=== PATIENT | male | born 1985 | race Two or more races ===

== ENCOUNTER 2021-01-05 10:14 | Outpatient (REF) | payer OTHER, SELFPAY ==
[2021-01-05 11:31] LABS: Hematocrit 48.2 % (42.0-52.0); Hemoglobin 16.3 g/dl (14.0-18.0); Mean Corpuscular HGB Conc 33.8 g/dl (31.0-36.0); Mean Corpuscular Hemoglobin 30.2 pg (27.0-33.0); Mean Corpuscular Volume 89.4 fL (80.0-98.0); Mean Platelet Volume 11.7 fL (9.4-12.4); Platelet Count 210 X10*3/uL (160-400); Red Blood Count 5.39 X10*6/uL (4.60-5.80); Red Cell Distribution Width 12.6 % (11.0-16.0); White Blood Count 5.9 X10*3/uL (4.8-10.8)
[2021-01-05 11:31] LABS: Appearance Urine CLEAR; Color Urine YELLOW; Glucose Urine UA NEG (NEG); Leukocyte Esterase Urine NEG (NEG); Nitrite Urine NEG (NEG); Urine Blood NEG (NEG); Urine Ketones NEG (NEG); Urine Protein 1+ MG/DL (NEG-TRACE)
[2021-01-05 11:50] LABS: RBC Urine 0 /HPF (0); WBC Urine 0 /HPF (0-4)
[2021-01-05 12:13] LABS: Alanine Aminotransferase 34 U/L (0-40); Albumin Level 4.7 g/dL (3.5-5.0); Alkaline Phosphatase 83 U/L (39-117); Anion Gap 14 (12-20); Aspartate Amino Transferase 20 U/L (5-37); Bilirubin Direct 0.4 mg/dL (0.0-0.5); Bilirubin Total 1.3 mg/dL (0.0-1.0); Blood Urea Nitrogen 13 mg/dL (9-16); Calcium 9.7 mg/dL (8.4-10.2); Carbon Dioxide 27 mmol/L (22-29); Chloride 105 mmol/L (96-108); Cholesterol 179 mg/dL; Estimated Glomerular Filt Rate > 60; Glucose Random 95 mg/dL (60-115); HDL Cholesterol 42 mg/dL; LDL Cholesterol Calculated 116 mg/dl; Potassium 4.6 mmol/L (3.3-5.1); Sodium 141 mmol/L (135-145); Total Protein 7.5 g/dL (6.5-8.0); Triglycerides 105 mg/dL
== END 2021-01-05 10:15 | disposition home or self-care (01) ==
LOC: HO.LAB 10:14
PROVIDERS: PCP Internal Medicine; Visit Provider Internal Medicine
DX: R21 Rash and other nonspecific skin eruption (principal)
CPT/HCPCS: 36415; 80048; 80061; 80076; 81001; 85027

== ENCOUNTER 2021-06-16 02:45 | Emergency (ER) | payer OTHER, SELFPAY ==
[2021-06-16 02:51] VITALS: BP 155/77; PULSE 101; RESP 20; TEMP 37.2; O2SAT 99; BMI 32.6
--- NOTE | 2021-06-16 03:08 | ED.URI ---
HPI - URI/Sore Throat General Chief Complaint: Upper Respiratory Symptoms Stated Complaint: SoB Time Seen by Provider: 06/16/21 03:08 History of Present Illness HPI Narrative: Patient is a 35-year-old male presented with coughing upper respiratory symptoms. Tested positive for COVID 2 days ago. Continue calf symptoms of shortness of breath. Sent in for further evaluation he is vaccinated with Moderna x2. No chest pain or diaphoresis no significant past medical history. Patient is on home Related Data Previous Rx's Medication Instructions Recorded ketoconazole 2 % topical cream 1 appl TOPICAL DAILY #15 g 06/07/21 Allergies Allergy/AdvReac Type Severity Reaction Status Date / Time No Known Allergies Allergy Verified 06/16/21 02:55 Review of Systems Review of Systems: Positive cough and upper respiratory symptoms positive generalized malaise Yes all other systems are reviewed and are negative FOR[facility]LY [facility], [facility] Past Medical History Attestation statement: The following information was validated with the patient. Surgical History History of dental surgery Family History Family History Mother No problems noted. Father Heart attack Diabetes Brother Mental health disorder Substance use disorder Social History Social History Housing: Apartment Alcohol intake: never Patient Tobacco Use Status: Never used Tobacco e-Cigarette/Vaping Use: Never Used Second Hand Smoke Exposure: No Advance Directives: No Advance Directives Information Provided: Yes service: No Current occupational status: employed Cognitive needs: No Hearing needs: No Vision needs: Yes (Glasses) Physical Exam Vital Signs: Vital Signs: Last Vital Signs Temp 98.9 F 06/16/21 02:51 Pulse 101 H 06/16/21 02:51 Resp 20 06/16/21 02:51 BP 155/77 H 06/16/21 02:51 Pulse Ox 99 06/16/21 02:51 BMI result Body Mass Index 32.6 Appearance: Alert. Oriented X3. No acute distress. Eyes: Pupils equal, round and reactive to light. ENT: Pharynx normal. Neck: Normal inspection. Neck supple. No lymph nodes noted. No crepitus CVS: Normal heart rate and rhythm. Pulses normal. Normal S1 and S2 Respiratory: No respiratory distress. Breath sounds normal. No Wheezing. No rales Abdomen: Soft and nontender. No rigidity. No distention. good BS x4 Skin: Skin warm and dry. Normal skin color. Normal skin turgor. Extremities: No lower extremity edema. Neurovascular intact to all extremities. No Lacerations. No Rash Neuro: Oriented X 3. No motor deficit. No sensory deficit. Moving all extermities. No slurred speech MDM - URI/Sore Throat MDM Narrative Medical decision making narrative: O2 sat is 99% on room air no distress. Will discharge patient home. Tested positive for COVID. Well-appearing no distress in stable condition Medical Records Attestation: I reviewed the patient's medical records. Lab Data Attestation: I reviewed the patient's lab results. Discharge Plan Discharge Clinical Impression: COVID-19 Patient Disposition: Home, Self-Care Instructions: COVID-19 (Coronavirus Disease 2019) (ED) Prescriptions: No Action ketoconazole 2 % cream 1 appl topical DAILY Qty: 15 0RF Referrals: Physician,Unknown J [Primary Care Provider] -
== END 2021-06-16 03:23 | disposition home or self-care (01) ==
PROVIDERS: Emergency Provider Emergency Medicine Emergency Medical Services
DX: U07.1 COVID-19 (principal); R06.02 Shortness of breath; R05.9 Cough, unspecified
CPT/HCPCS: 99282; 99283

== ENCOUNTER 2022-04-17 09:48 | Outpatient (REF) | payer OTHER, SELFPAY ==
--- NOTE | ~2022-04-17 | FL_ITS ---
EXAMINATION: BARIUM SWALLOW AND UPPER GI CLINICAL INFORMATION: Dysphagia COMPARISON: None TECHNIQUE: Upper GI and barium swallow performed using thin and thick barium and effervescent granules. Barium tablet was also administered. Fluoroscopy time 1.1 minutes. 51 images. DAP 9.7 prater per centimeter squared. Total dose of 45 mgy. FINDINGS: The swallowing mechanism is normal. No aspiration or penetration. There is mucosal irregularity and abnormal Contractions of the proximal thoracic esophagus suggestive of esophagitis. There is temporary stasis of the barium tablet in this region as well. This area does not completely distended and is difficult to exclude mild narrowing of the esophagus/stricture. No mass. Normal esophageal motility. There is a small sliding-type hiatal hernia. The esophagus is otherwise normal. No reflux is seen. The stomach and duodenum are normal. No fold thickening, mass, ulcer or stricture. FL/FL upper GI w air w Ba Swallow IMPRESSION: Esophagitis of the proximal thoracic esophagus. There is temporary stasis of the barium tablet in this region. The esophagus does not fully distend in this region and it is difficult to exclude mild narrowing/stricture. Small sliding-type hiatal hernia.
== END 2022-04-17 09:49 | disposition home or self-care (01) ==
LOC: HO.XRAY 09:48
PROVIDERS: PCP Internal Medicine; Visit Provider Internal Medicine
DX: R13.10 Dysphagia, unspecified (principal)
CPT/HCPCS: 74246

== ENCOUNTER → 2022-06-24 15:53 | Outpatient (BNVA) | payer OTHER, SELFPAY | PROVIDERS: PCP Internal Medicine; Visit Provider Nurse Practitioner Family | DX: Z13.89 Encounter for screening for other disorder (principal) ==

== ENCOUNTER 2022-07-19 10:03 | Outpatient (REF) | payer OTHER, SELFPAY ==
[2022-07-19 10:48] LABS: Hematocrit 49.5 % (42.0-52.0); Hemoglobin 16.8 g/dl (14.0-18.0); Mean Corpuscular HGB Conc 33.9 g/dl (31.0-36.0); Mean Corpuscular Hemoglobin 30.1 pg (27.0-33.0); Mean Corpuscular Volume 88.6 fL (80.0-98.0); Mean Platelet Volume 10.9 fL (9.4-12.4); Platelet Count 195 X10*3/uL (160-400); Red Blood Count 5.59 X10*6/uL (4.60-5.80); Red Cell Distribution Width 12.5 % (11.0-16.0); White Blood Count 6.9 X10*3/uL (4.8-10.8)
[2022-07-19 11:14] LABS: Appearance Urine Clear; Color Urine Yellow; Glucose Urine UA Negative (Negative); Leukocyte Esterase Urine Negative (Negative); Nitrite Urine Negative (Negative); PH >= 9.0 (5.0-9.0); Urine Blood Negative (Negative); Urine Ketones Negative (Negative); Urine Protein Negative (Neg-Trace)
[2022-07-19 11:23] LABS: Alanine Aminotransferase 64 U/L (0-40); Albumin Level 4.4 g/dL (3.5-5.0); Alkaline Phosphatase 64 U/L (39-117); Anion Gap 14 (12-20); Aspartate Amino Transferase 27 U/L (5-37); Bilirubin Direct 0.3 mg/dL (0.0-0.5); Bilirubin Total 1.2 mg/dL (0.0-1.0); Blood Urea Nitrogen 14 mg/dL (9-16); Calcium 10.2 mg/dL (8.4-10.2); Carbon Dioxide 26 mmol/L (22-29); Chloride 107 mmol/L (96-108); Cholesterol 207 mg/dL; Estimated Glomerular Filt Rate > 60; Glucose Random 92 mg/dL (60-115); HDL Cholesterol 38 mg/dL; LDL Cholesterol Calculated 148 mg/dl; Potassium 4.7 mmol/L (3.3-5.1); Sodium 142 mmol/L (135-145); Total Protein 7.1 g/dL (6.5-8.0); Triglycerides 108 mg/dL
[2022-07-19 11:54] LABS: Folate 13.5 ng/mL (> or = 4.0); Vitamin B12 604 pg/mL (200-900)
[2022-07-25 13:07] LABS: Vitamin D 25-OH, D2 <4 ng/mL; Vitamin D 25-OH, D3 23 ng/mL; Vitamin D 25-OH, Total 23 ng/mL (30-100)
== END 2022-07-19 10:04 | disposition home or self-care (01) ==
LOC: HO.LAB 10:03
PROVIDERS: Nurse Practitioner Family; PCP Internal Medicine; Visit Provider Internal Medicine
DX: Z00.00 Encounter for general adult medical examination without abnormal findings (principal); K20.90 Esophagitis, unspecified without bleeding; R19.7 Diarrhea, unspecified; E55.9 Vitamin D deficiency, unspecified; E78.00 Pure hypercholesterolemia, unspecified
CPT/HCPCS: 36415; 80048; 80061; 80076; 81003; 82306; 82607; 82746; 84443; 85027

== ENCOUNTER 2022-08-22 11:22 | Day surgery (SDC) | payer OTHER, SELFPAY ==
--- NOTE | 2022-08-21 10:34 | P.CONAN_ITS ---
HPI - Anesthesia Eval Consult details Narrative: 36yo M for Upper Endoscopy PMF Active Problems Active Problems: All Active Problems (Updated 06/24/22 @ 16:38 by Estrella Colvin [facility]) Tinea versicolor (Acute) Esophagitis (Acute) Dysphagia (Acute) COVID-19 (Acute) Annual physical exam (Acute) Rash (Acute) Past Medical History Medical History Esophagitis Tinea versicolor Family History Family History Mother No problems noted. Father Heart attack Diabetes Brother Mental health disorder Substance use disorder Surgical History Surgical History History of dental surgery Social History Social History Housing: Apartment Alcohol intake: never Patient Tobacco Use Status: Never used Tobacco e-Cigarette/Vaping Use: Never Used Second Hand Smoke Exposure: No service: No Current occupational status: employed Cognitive needs: No Hearing needs: No Vision needs: Yes (Glasses) Meds Allergies Allergy/AdvReac Type Severity Reaction Status Date / Time No Known Allergies Allergy Verified 07/10/22 09:27 Exam Exam Date and Time: August 21, 2022 1034 Pertinent Lab Results Pertinent Lab Results: Laboratory Tests 07/19/22 07/19/22 10:12 10:12 WBC 6.9 Hgb 16.8 Hct 49.5 Plt Count 195 Sodium 142 Potassium 4.7 Chloride 107 Carbon Dioxide 26 BUN 14 Creatinine 1.26 Assessment and Plan Assessment Anesthesia Assessment: Chart Reviewed
[2022-08-22 12:38] VITALS: BP 134/69; PULSE 70; RESP 16; TEMP 36.9; O2SAT 96; BMI 32.7
[2022-08-22] MEDS: Lactated Ringers 1,000 ML 100 ML IVCONT (12:46)
--- NOTE | 2022-08-22 13:04 | HO.ANESPROP2 ---
[facility] Active Problems Active Problems: All Active Problems (Updated 06/24/22 @ 16:38 by Estrella Colvin [facility]) Tinea versicolor (Acute) Esophagitis (Acute) Dysphagia (Acute) COVID-19 (Acute) Annual physical exam (Acute) Rash (Acute) Past Medical History Medical History Esophagitis Tinea versicolor Family History Family History Mother No problems noted. Father Heart attack Diabetes Brother Mental health disorder Substance use disorder Family history of problems with anesthesia: No Surgical History Surgical History History of dental surgery History of Problems with Anesthesia: No Social History Social History Housing: Apartment Alcohol intake: never Patient Tobacco Use Status: Never used Tobacco e-Cigarette/Vaping Use: Never Used Second Hand Smoke Exposure: No Use of substances other than those prescribed or required for medical reasons: No Are you DNR?: No Advance Directives: No Advance Directives Information Provided: Yes service: No Current occupational status: employed Cognitive needs: No Hearing needs: No Vision needs: Yes (Glasses) Meds Allergies Allergy/AdvReac Type Severity Reaction Status Date / Time No Known Allergies Allergy Verified 07/10/22 09:27 Active Medications: Current Medications Lactated Ringer's (Lr) 1,000 mls @ 100 mls/hr IVCONT .Q10H JONH Last Admin: 08/22/22 12:46 Dose: 100 mls/hr Exam Exam Date and Time: August 22, 2022 1304 Height,Weight and Vital Signs: Height 5 ft 8 in Weight 97.7 kg Last Vital Signs Temp 98.4 F 08/22/22 12:38 Pulse 70 08/22/22 12:38 Resp 16 08/22/22 12:38 BP 134/69 08/22/22 12:38 Pulse Ox 96 08/22/22 12:38 O2 Del Method Room Air 08/22/22 12:38 Airway Mallampati Class: II TM Dist: >3cm Neck ROM: Full Heart: RRR Lungs: CTA Assessment and Plan Assessment Anesthesia Assessment: Anesthesia Plan Discussed Final Anesthetic Review Family History of Problems with Anesthesia: No History of Problems with Anesthesia: No NPO: Yes ASA Class: II Final Preanesthetic Review: Meds/Allgs Chart Reviewed, Consent Obtained/Reviewed and Anes Risks/Benef Reviewed Patient Risk: Low Procedure Risk: Low Anesthetic Plan Anesthetic Plan: MAC: Disposition: Standard PACU
--- NOTE | 2022-08-22 13:29 | MHC.SHP ---
Pre-Procedural Eval Section A Date of Service: 08/22/22 The patient is an INPATIENT: No The History & Physical has been completed within 30 days and I have reviewed it.: No Section B Chief Complaint: Dysphagia, unspecified Relevant Family History (Specify if Yes): No Relevant Social History: None Present Medications: see Short Stay Collaborative assessment Medical History: Significant History (Esophagitis Tinea versicolor) History of Previous Operations: Relevant previous surgery/procedure and date(s) ( history of dental surgery) Allergies: Allergies Allergy/AdvReac Type Severity Reaction Status Date / Time No Known Allergies Allergy Verified 07/10/22 09:27 Review of Systems Sugical H&P ROS: Negative: Constitution, Cardiovascular and Respiratory and Yes, Specify: Gastrointestinal (dysphagia) Exam Surgical H&P Exam: Normal: Heart, Normal: Lungs, Normal: Extremities and Normal: Abdomen Plan Diagnosis/Plan: Unchanged I have reviewed the history and physical and performed a pertinent physical examination on my patient. No changes have occurred unless specified. Time Spent With Patient Time: Total time managing care of this patient today ____ minutes.
--- NOTE | 2022-08-22 13:35 | P.OP_ITS ---
Operative Note Operative Note Date of Service: 08/22/22 Narrative: FLEXIBLE TRANSORAL UPPER GASTROINTESTINAL ENDOSCOPY WITH BIOPSIES AND ESOPHAGEAL BALLOON DILATION Pre-op diagnosis: GERD, Dysphagia (intermittent episodes of dysphagia to solids relieved by regurgitation) Post-op diagnosis: Gastritis, multiple esophageal strictures - likely eosinophilic esophagitis Endoscopist:Heidi Tran MD Anesthesia:?MAC Consent: Indications for the procedure and potential complications of bleeding, perforation, reaction to medications and missed diagnosis were discussed with the patient and informed consent was obtained. Instrument: Olympus GIF H 190 mid size upper endoscope Monitoring: Vital signs and clinical assessment, continuous EKG monitoring, Pulse oximetry, Carbon Dioxide monitoring and blood pressure monitoring were done throughout the procedure. Procedure: The patient was placed in the left lateral decubitis position and pre-procedure medications were administered and a bite block was placed. The endoscope was inserted into the mouth and advanced under direct vision to the third part of duodenum. A careful inspection was made as the upper endoscope was withdrawn including a retroflexed examination of the proximal stomach; Findings and interventions are described below. Findings: Larynx: Normal Esophagus: Decreased calibre of esophagus with multiple strictures in the proximal, mid and distal esophagus - unable to advance a mid size endoscope through the strictures. Balloon dilation was performed with a 10 and 11 mm CRE balloon in the proximal, mid and distal esophagus x 60 seconds at each level. Upper endoscope was then passed with mild resistance through the esophagus into the stomach. Biopsies were obtained from the proximal esophagus to check for EOE. GE junction at 40 cms, no esophagitis or Ghosh's. Stomach: Mild gastric erythema. Biopsies were obtained. Grade 2 flap valve on retroflexed examination of the cardia. Duodenum: Normal bulb and descending duodenum Intervention: Biopsies as noted above Impression and Post Procedure Diagnosis: Endoscopy Findings: ESOPHAGUS: Decreased calibre of esophagus with multiple strictures in the proximal, mid and distal esophagus - unable to advance a mid size endoscope through the strictures. Balloon dilation was performed with a 10 and 11 mm CRE balloon in the proximal, mid and distal esophagus x 60 seconds at each level. Upper endoscope was then passed with mild resistance through the esophagus into the stomach. Biopsies were obtained from the proximal esophagus to check for EOE. STOMACH: Mild antral gastritis Plan: Await pathology results Patient has an appointment on 09/03/22 in the GI Clinic with Estrella Colvin FNP- [facility]. Above findings were reviewed with the patient and EOE handout was given in the discharge area. Advise repeat EGD in 4 to 6 weeks for repeat dilation
[2022-08-22 14:15] VITALS: BP 116/63; PULSE 70; RESP 16; TEMP 36.1; O2SAT 93
[2022-08-22 14:30] VITALS: BP 128/66; PULSE 64; RESP 16; TEMP 36.8; O2SAT 95
== END 2022-08-22 15:22 | disposition home or self-care (01) ==
PROVIDERS: PCP Internal Medicine; Visit Provider Internal Medicine Gastroenterology
PROC: 0DJ08ZZ Inspection of Upper Intestinal Tract, Via Natural or Artificial Opening Endoscopic (ICD-10-PCS; CPT 43235; principal; 2022-08-22 13:10)
DX: R13.10 Dysphagia, unspecified (principal); K21.9 Gastro-esophageal reflux disease without esophagitis; K29.50 Unspecified chronic gastritis without bleeding; K22.2 Esophageal obstruction; K20.90 Esophagitis, unspecified without bleeding; B36.0 Pityriasis versicolor; Z79.899 Other long term (current) drug therapy
CPT/HCPCS: 43249; 43239; 88305; 88342; C1726

== ENCOUNTER 2022-09-16 07:37 | Day surgery (SDC) | payer OTHER, SELFPAY ==
[2022-09-12 14:11] VITALS: BMI 36.2
--- NOTE | 2022-09-15 10:03 | HO.ANESPROP2 ---
Documented by User: Mirtha Randhawa NP 09/15/22 10:10 HPI - Anesthesia Eval Consult details Narrative: 36yo M for Upper Endoscopy s/p EGD 07/2022 with TIVA PMFSH Active Problems Active Problems: All Active Problems (Updated 06/24/22 @ 16:38 by Estrella Colvin, [facility]) Tinea versicolor (Acute) Esophagitis (Acute) Dysphagia (Acute) COVID-19 (Acute) Annual physical exam (Acute) Rash (Acute) Past Medical History Medical History Esophagitis Hiatal hernia Tinea versicolor Family History Family History Mother No problems noted. Father Heart attack Diabetes Brother Mental health disorder Substance use disorder Family history of problems with anesthesia: No Surgical History Surgical History (Updated 09/16/22 @ 08:31 by Lucero Maria MD) History of dental surgery Hx of esophagogastroduodenoscopy History of Problems with Anesthesia: No Social History Social History Housing: Apartment Alcohol intake: never Patient Tobacco Use Status: Never used Tobacco e-Cigarette/Vaping Use: Never Used Second Hand Smoke Exposure: No Use of substances other than those prescribed or required for medical reasons: No Are you DNR?: No Advance Directives: No Advance Directives Information Provided: Yes service: No Current occupational status: employed Cognitive needs: No Hearing needs: No Vision needs: Yes (Glasses) Meds Allergies Allergy/AdvReac Type Severity Reaction Status Date / Time No Known Allergies Allergy Verified 09/16/22 07:56 Exam Exam Date and Time: September 15, 2022 1003 Height,Weight and Vital Signs: Height 5 ft 8 in Weight 107.955 kg Pertinent Lab Results Pertinent Lab Results: Laboratory Tests 07/19/22 07/19/22 10:12 10:12 WBC 6.9 Hgb 16.8 Hct 49.5 Plt Count 195 Sodium 142 Potassium 4.7 Chloride 107 Carbon Dioxide 26 BUN 14 Creatinine 1.26 Assessment and Plan Assessment Anesthesia Assessment: Chart Reviewed Final Anesthetic Review Family History of Problems with Anesthesia: No History of Problems with Anesthesia: No Documented by User: Lucero Maria MD 09/16/22 08:47 HPI - Anesthesia Eval Consult details Narrative: 36yo M for Upper Endoscopy s/p EGD 07/2022 with TIVA. Tight esophageal stricture. For repeat EGD, possible dilatation PMFSH Active Problems Active Problems: All Active Problems (Updated 09/16/22 @ 08:15 by Lucero Maria MD) Tinea versicolor (Acute) Esophagitis (Acute) Dysphagia (Acute) COVID-19 (Acute) Annual physical exam (Acute) Rash (Acute) GERD Sliding hiatal hernia Increased BMI Past Medical History Medical History Esophagitis Hiatal hernia Tinea versicolor Family History Family History Mother No problems noted. Father Heart attack Diabetes Brother Mental health disorder Substance use disorder Surgical History Surgical History (Updated 09/16/22 @ 08:31 by Lucero Maria MD) History of dental surgery Hx of esophagogastroduodenoscopy Social History Social History Housing: Apartment Alcohol intake: never Patient Tobacco Use Status: Never used Tobacco e-Cigarette/Vaping Use: Never Used Second Hand Smoke Exposure: No Use of substances other than those prescribed or required for medical reasons: No Are you DNR?: No Advance Directives: No Advance Directives Information Provided: Yes service: No Current occupational status: employed Cognitive needs: No Hearing needs: No Vision needs: Yes (Glasses) Meds Allergies Allergy/AdvReac Type Severity Reaction Status Date / Time No Known Allergies Allergy Verified 09/16/22 07:56 Exam Height,Weight and Vital Signs: Height 5 ft 8 in Weight 107.955 kg Vital Signs Temp Pulse Resp BP Pulse Ox O2 Del Method 09/16/22 08:00 98.0 F 66 15 108/66 96 Room Air Airway Mallampati Class: II TM Dist: >3cm Neck ROM: Full Loose/Missing/Broken Teeth: No (Denies broken, loose, missing teeth) Heart: RRR Lungs: CTAB Assessment and Plan Assessment Anesthesia Assessment: Anesthesia Plan Discussed Final Anesthetic Review NPO: Yes ASA Class: II Final Preanesthetic Review: No Changes in Pt Med Stat, Meds/Allgs Chart Reviewed, Consent Obtained/Reviewed and Anes Risks/Benef Reviewed Patient Risk: Intermediate Procedure Risk: Low Assessment/Block/Sedation in SS: Assess/Block/Sedation-SS Anesthetic Plan Anesthetic Plan: MAC: Disposition: Standard PACU
[2022-09-16 07:57] VITALS: BMI 35.0
[2022-09-16 08:00] VITALS: BP 108/66; PULSE 66; RESP 15; TEMP 36.7; O2SAT 96
[2022-09-16] MEDS: Lactated Ringers 1,000 ML 100 ML IVCONT (08:18)
--- NOTE | 2022-09-16 08:33 | MHC.SHP ---
Pre-Procedural Eval Section A Date of Service: 09/16/22 The patient is an INPATIENT: No The History & Physical has been completed within 30 days and I have reviewed it.: No Section B Chief Complaint: Esophageal obstruction Relevant Family History (Specify if Yes): No Relevant Social History: None Present Medications: see Short Stay Collaborative assessment Medical History: Significant History (Esophagitis Tinea versicolor) History of Previous Operations: Relevant previous surgery/procedure and date(s) (Dental surgery) Allergies: Allergies Allergy/AdvReac Type Severity Reaction Status Date / Time No Known Allergies Allergy Verified 09/16/22 07:56 Review of Systems Sugical H&P ROS: Negative: Constitution, Cardiovascular, Respiratory and Gastrointestinal Exam Surgical H&P Exam: Normal: Heart, Normal: Lungs, Normal: Extremities and Normal: Abdomen Plan Diagnosis/Plan: Unchanged I have reviewed the history and physical and performed a pertinent physical examination on my patient. No changes have occurred unless specified. Time Spent With Patient Time: Total time managing care of this patient today ____ minutes.
--- NOTE | 2022-09-16 08:34 | W.PM.OPN ---
Operative Note Operative Note Date of Service: 09/16/22 Narrative: FLEXIBLE TRANSORAL UPPER GASTROINTESTINAL ENDOSCOPY WITH BIOPSIES Pre-op diagnosis: Dysphagia, EOE with multiple Esophageal strictures Post-op diagnosis: Same Endoscopist:? Manan Tran MD Anesthesia:?MAC Consent: Indications for the procedure and potential complications of bleeding, perforation, reaction to medications and missed diagnosis were discussed with the patient and informed consent was obtained. Instrument: Olympus GIF H 190 mid size upper endoscope Monitoring: Vital signs and clinical assessment, continuous EKG monitoring, Pulse oximetry, Carbon Dioxide monitoring and blood pressure monitoring were done throughout the procedure. Procedure: The patient was placed in the left lateral decubitis position and pre-procedure medications were administered and a bite block was placed. The endoscope was inserted into the mouth and advanced under direct vision to the third part of duodenum. A careful inspection was made as the upper endoscope was withdrawn including a retroflexed examination of the proximal stomach; Findings and interventions are described below. Findings: Larynx: Normal Esophagus: Decreased calibre of esophagus with multiple strictures in the proximal, mid and distal esophagus - mid size endoscope advanced through the strictures with mild resistance. Balloon dilation was performed with a 12? CRE balloon (balloon could not be fully inflated due to increased resistance and was inflated to approx 10.5 to 11 mm level) in the proximal, mid and distal esophagus x 60 seconds at each level. Biopsies were obtained from the proximal esophagus to FU on EOE. GE junction at 40 cms, no esophagitis or Ghosh's. Stomach: Mild gastric erythema. Grade 2 flap valve on retroflexed examination of the cardia. Duodenum: Normal bulb and descending duodenum Intervention: Biopsies and balloon dilation as noted above Impression and Post Procedure Diagnosis: Endoscopy Findings: ESOPHAGUS: Decreased calibre of esophagus with multiple strictures in the proximal, mid and distal esophagus - mid size endoscope advanced through the strictures with mild resistance. Balloon dilation was performed with a 12? CRE balloon (balloon could not b fully inflated due to increased resistance and was inflated to approx 10.5 to 11 mm level) in the proximal, mid and distal esophagus x 60 seconds at each level. Biopsies were obtained from the proximal esophagus to FU on EOE. Plan: Await pathology results. If biopsies show persistently elevated eosinophils, consider treatment with Fluticasone x 12 weeks. Patient has an appointment on 09/30/22 in the GI Clinic with Estrella Colvin FNP- . Above findings were reviewed with the patient and he was advised to continue taking PPI. Advise repeat EGD in 3 months for further dilation.
[2022-09-16 09:15] VITALS: BP 105/49; PULSE 68; RESP 14; TEMP 36.7; O2SAT 97
[2022-09-16 09:30] VITALS: BP 101/53; PULSE 58; RESP 13; O2SAT 97
[2022-09-16 09:45] VITALS: BP 119/68; PULSE 69; RESP 16; TEMP 36.6; O2SAT 97
== END 2022-09-16 10:47 | disposition home or self-care (01) ==
PROVIDERS: PCP Internal Medicine; Visit Provider Internal Medicine Gastroenterology
PROC: 0DJ08ZZ Inspection of Upper Intestinal Tract, Via Natural or Artificial Opening Endoscopic (ICD-10-PCS; CPT 43235; principal; 2022-09-16 09:20)
DX: K20.0 Eosinophilic esophagitis (principal); R13.14 Dysphagia, pharyngoesophageal phase; K21.9 Gastro-esophageal reflux disease without esophagitis; K22.2 Esophageal obstruction; E66.9 Obesity, unspecified; Z68.36 Body mass index [BMI] 36.0-36.9, adult; Z79.899 Other long term (current) drug therapy
CPT/HCPCS: 43239; 43249; 88305; C1726; J2250

== ENCOUNTER → 2022-09-16 07:37 | Outpatient (BNV) | payer OTHER, SELFPAY | PROVIDERS: PCP Internal Medicine; Visit Provider Internal Medicine Gastroenterology | DX: R13.10 Dysphagia, unspecified (principal); K22.2 Esophageal obstruction | CPT/HCPCS: 43239; 43249 ==

== ENCOUNTER → 2022-09-30 15:50 | Outpatient (BNVA) | payer OTHER, SELFPAY | PROVIDERS: PCP Internal Medicine; Visit Provider Nurse Practitioner Family ==

== ENCOUNTER → 2022-09-30 15:50 | Outpatient (AMB) | payer OTHER, SELFPAY ==
--- NOTE | 2022-09-30 15:52 | MHC.OFFVIS ---
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 Barium swallow showed possible narrowing in the distal esophagus. Patient will be sent for upper endoscopy in the near future to rule out Schatzki ring, achalasia, Ghosh's, esophagitis, H pylori. Patient was found to also have sliding hiatal hernia. Discussed with patient and educated him on sleeping on a wedge pillow. GERD (gastroesophageal reflux disease) Esophagitis identified on barium swallow. Patient will be sent for upper endoscopy. Please schedule procedure. Patient denies any issues with anesthesia in the past. No history of sleep apnea. Patient denies any cardiac or respiratory symptoms. He can continue taking pantoprazole. He was encouraged to get H pylori testing. He will be treated empirically I will see after procedure. Patient is agreeable to this plan and verbalizes understanding of instructions. He was given the opportunity to ask questions and all questions answered. Plan Orders Orders Vitamin B12 and Folate Today R19.7 Vitamin D 25-OH (D2 and D3) Today E55.9 H pylori Ag Stool Today K21.9 UPPER ENDOSCOPY: Findings: Larynx:? Normal Esophagus: Decreased calibre of esophagus with multiple strictures in the proximal, mid and distal esophagus - mid size endoscope advanced through the strictures with mild resistance. Balloon dilation was performed with a 12? CRE balloon (balloon could not be fully inflated due to increased resistance and was inflated to approx 10.5 to 11 mm level) in the proximal, mid and distal esophagus x 60 seconds at each level. Biopsies were obtained from the proximal esophagus to FU on EOE. GE junction at 40 cms, no esophagitis or Ghosh's. Stomach: Mild gastric erythema. Grade 2 flap valve on retroflexed examination of the cardia. Duodenum: Normal bulb and descending duodenum Intervention: Biopsies and balloon dilation as noted above Impression and Post Procedure Diagnosis: Endoscopy Findings: ESOPHAGUS:? Decreased calibre of esophagus with multiple strictures in the proximal, mid and distal esophagus - mid size endoscope advanced through the strictures with mild resistance. Balloon dilation was performed with a 12? CRE balloon (balloon could not b fully inflated due to increased resistance and was inflated to approx 10.5 to 11 mm level) in the proximal, mid and distal esophagus x 60 seconds at each level. Biopsies were obtained from the proximal esophagus to FU on EOE. Plan: Await pathology results.? If biopsies show persistently elevated? eosinophils, consider treatment with Fluticasone x 12 weeks. Above findings were reviewed with the patient and he was advised to continue taking PPI. Advise repeat EGD in 3 months for further dilation. PATHOLOGY RESULTS: Diagnosis Esophagus, proximal, biopsy:? Active esophagitis (maximum eosinophil count 5 per high powered field). TODAY'S VISIT Patient is here today for follow-up and to discuss upper endoscopy results. Patient reports improvement after treatment with PPI and dilation of esophagus on his upper endoscopy. Unable to dilate more than 11.5 mm. Recommendation was made for patient to return in 3 months. Biopsy showed eosinophil count 5 her high-powered field. Patient is taking pantoprazole every morning. Patient denies nausea or vomiting. Occasional dyspepsia without dysphagia or odynophagia. Patient is sleeping on a wedge pillow every night. Avoiding eating late at night. Patient denies any other GI concerning symptoms. [facility] Medical History Esophagitis Hiatal hernia Tinea versicolor Surgical History History of dental surgery Hx of esophagogastroduodenoscopy Family History Mother No problems noted. Father Heart attack Diabetes Brother Mental health disorder Substance use disorder Social History Housing: Apartment Alcohol intake: never Patient Tobacco Use Status: Never used Tobacco e-Cigarette/Vaping Use: Never Used Second Hand Smoke Exposure: No service: No Current occupational status: employed Cognitive needs: No Hearing needs: No Vision needs: Yes (Glasses) Review of Systems Const Denies weight gain and Denies weight loss ENT Reports no additional complaints, Denies dysphagia and Denies odynophagia Card Reports no additional complaints Resp Reports no additional complaints GI Denies abdominal pain, Denies belching, Denies melena, Denies bloating, Denies change in bowel habits, Denies dysphagia, Denies excessive flatus, Denies dyspepsia, Reports heartburn (Occasional), Denies diarrhea, Denies loose stools, Denies nausea, Denies odynophagia and Denies vomiting Reports no additional complaints Musc Reports no additional complaints Neuro Reports no additional complaints Psych Reports no additional complaints Endo Reports no additional complaints Physical Exam Vital Signs: Last Vital Signs Pulse 53 09/30/22 15:53 BP 139/72 09/30/22 15:53 BMI result Body Mass Index 35.8 Const General: healthy appearing, no acute distress and well developed Nutritional Appearance: obese Orientation/consciousness: patient oriented x3 HEENT Head: Yes normal to inspection, Yes normocephalic and Yes atraumatic Face and sinus: Yes normal facial exam Mouth: Normal oral and palatal mucosa present Throat: Yes posterior oropharynx normal, Yes tonsils normal and Yes uvula midline Eyes General: appearance normal, both eyes and all related structures Neck Neck: Yes normal visual inspection, Yes full ROM and Yes trachea midline Thyroid: Thyroid normal Resp Effort & Inspection: normal respiratory effort, able to speak in complete sentences, no tracheal deviation and symmetric chest movement Auscultation: clear to auscultation bilaterally Cardio Rate: regular rate Heart sounds: S1 normal heart sound present and S2 normal heart sound present GI Inspection: Yes normal to inspection, No distended and Yes obesity Palpation (GI): Soft to palpation, not firm, nontender and No hepatosplenomegaly present Auscultation: normal bowel sounds General: Yes no CVA tenderness Back/Spine/Pelvis Back: no CVA tenderness Skin General skin exam: elasticity normal, turgor normal and dry skin Neuro General: patient oriented x3 Psych Appearance: grossly normal Mental Status: mental status grossly normal Speech and movement: Normal speech and movement present Affect: normal affect Assessment & Plan Assessment & Plan (1) Eosinophilic esophagitis: Code(s): K20.0 - Eosinophilic esophagitis Plan: Patient diagnosed with mild eosinophilic esophagitis. We will start him on budesonide at bedtime. Eosinophilic count 5. Continue PPI. Avoid dietary triggers. Avoid food like nuts, seafood, milk, wheat. Will schedule patient for repeat dilation end of November. Patient will call us if he will have worsening symptoms. He will follow-up with us after upper endoscopy, sooner on as needed basis. Patient is agreeable to this plan and verbalizes understanding of instructions. He was given the opportunity to ask questions and all questions answered. Thank you for allowing me to participate in his care Medications: New budesonide ER 3 mg PO DAILY 12 weeks 84 ea 0RF K20.0 - Eosinophilic esophagitis Coding Level of Care Code Est Pt Level 3 (29742) Diagnoses Eosinophilic esophagitis K20.0 Time Spent (min) 35 Comment 20 minutes spent with patient and additional 15 minutes spent reviewing his records
[2022-09-30 15:53] VITALS: BP 139/72; PULSE 53; BMI 35.8
== END ==
PROVIDERS: PCP Internal Medicine; Visit Provider Nurse Practitioner Family
DX: K20.0 Eosinophilic esophagitis (principal)
CPT/HCPCS: 99213

== ENCOUNTER 2022-12-19 10:06 | Day surgery (SDC) | payer OTHER, SELFPAY ==
[2022-12-17 08:00] VITALS: BMI 35.7
--- NOTE | 2022-12-17 14:11 | P.CONAN_ITS ---
Documented by User: Mirtha Randhawa NP 12/17/22 14:12 HPI - Anesthesia Eval Consult details Narrative: 37yo M for Upper Endoscopy,with poss dilation PMFSH Active Problems Active Problems: All Active Problems (Updated 09/16/22 @ 07:55 by Alla Mueller RN) Rash (Acute) Annual physical exam (Acute) COVID-19 (Acute) Dysphagia (Acute) Tinea versicolor (Acute) Esophagitis (Acute) Past Medical History Medical History Esophagitis Hiatal hernia Tinea versicolor Family History Family History Mother No problems noted. Father Heart attack Diabetes Brother Mental health disorder Substance use disorder Family history of problems with anesthesia: No Surgical History Surgical History History of dental surgery Hx of esophagogastroduodenoscopy History of Problems with Anesthesia: No Social History Social History Housing: Apartment Alcohol intake: never Patient Tobacco Use Status: Never used Tobacco e-Cigarette/Vaping Use: Never Used Second Hand Smoke Exposure: No Are you DNR?: No Advance Directives: No Advance Directives Information Provided: Yes service: No Current occupational status: employed Cognitive needs: No Hearing needs: No Vision needs: Yes (Glasses) Meds Allergies Allergy/AdvReac Type Severity Reaction Status Date / Time budesonide Allergy Swelling Verified 12/19/22 12:02 Exam Exam Date and Time: December 17, 2022 141 Height,Weight and Vital Signs: Height 5 ft 8 in Weight 106.594 kg Pertinent Lab Results Pertinent Lab Results: Laboratory Tests 07/19/22 10:12 WBC 6.9 Hgb 16.8 Hct 49.5 Plt Count 195 Sodium 142 Potassium 4.7 Chloride 107 Carbon Dioxide 26 BUN 14 Creatinine 1.26 Assessment and Plan Assessment Anesthesia Assessment: Chart Reviewed Final Anesthetic Review Family History of Problems with Anesthesia: No History of Problems with Anesthesia: No Documented by User: Unique Kye MD 12/19/22 12:23 [facility] Past Medical History Medical History Esophagitis Hiatal hernia Tinea versicolor Family History Family History Mother No problems noted. Father Heart attack Diabetes Brother Mental health disorder Substance use disorder Surgical History Surgical History History of dental surgery Hx of esophagogastroduodenoscopy Social History Social History Housing: Apartment Alcohol intake: never Patient Tobacco Use Status: Never used Tobacco e-Cigarette/Vaping Use: Never Used Second Hand Smoke Exposure: No Are you DNR?: No Advance Directives: No Advance Directives Information Provided: Yes service: No Current occupational status: employed Cognitive needs: No Hearing needs: No Vision needs: Yes (Glasses) Meds Allergies Allergy/AdvReac Type Severity Reaction Status Date / Time budesonide Allergy Swelling Verified 12/19/22 12:02 Exam Airway Mallampati Class: II (missing 3 teeth, denies anything loose) TM Dist: >3cm Neck ROM: Full Heart: rrr Lungs: cta Assessment and Plan Assessment Anesthesia Assessment: Anesthesia Plan Discussed Final Anesthetic Review NPO: Yes ASA Class: II Final Preanesthetic Review: No Changes in Pt Med Stat, Meds/Allgs Chart Reviewed and Consent Obtained/Reviewed Patient Risk: Intermediate Procedure Risk: Intermediate Anesthetic Plan Anesthetic Plan: MAC: Disposition: Standard PACU
--- NOTE | 2022-12-19 11:51 | MHC.SHP ---
Pre-Procedural Eval Section A Date of Service: 12/19/22 The patient is an INPATIENT: No The History & Physical has been completed within 30 days and I have reviewed it.: No Section B Chief Complaint: FU of Eosinophilic esophagitis Relevant Family History (Specify if Yes): No Relevant Social History: None Present Medications: see Short Stay Collaborative assessment Medical History: Significant History (History of colonoscopy History of elbow surgery) History of Previous Operations: Relevant previous surgery/procedure and date(s) (hx of EGD, hx of dental surgery) Allergies: Allergies Allergy/AdvReac Type Severity Reaction Status Date / Time No Known Allergies Allergy Verified 09/30/22 15:54 Review of Systems Sugical H&P ROS: Negative: Constitution, Cardiovascular, Respiratory and Gastrointestinal Exam Surgical H&P Exam: Normal: Heart, Normal: Lungs, Normal: Extremities and Normal: Abdomen Plan Diagnosis/Plan: Unchanged I have reviewed the history and physical and performed a pertinent physical examination on my patient. No changes have occurred unless specified. Time Spent With Patient Time: Total time managing care of this patient today ____ minutes.
[2022-12-19 12:00] VITALS: BP 125/68; PULSE 59; RESP 18; TEMP 36.1; O2SAT 98
[2022-12-19] MEDS: Lactated Ringers 1,000 ML 100 ML IVCONT (12:12)
--- NOTE | 2022-12-19 12:54 | P.OP_ITS ---
Operative Note Operative Note Date of Service: 12/19/22 Narrative: FLEXIBLE TRANSORAL UPPER GASTROINTESTINAL ENDOSCOPY WITH BIOPSIES AND ESOPHAGEAL BALLOON DILATION Pre-op diagnosis: dysphagia, follow-up of EOE Post-op diagnosis: same Endoscopist:? Manan Tran MD Anesthesia:?MAC Consent: Indications for the procedure and potential complications of bleeding, perforation, reaction to medications and missed diagnosis were discussed with the patient and informed consent was obtained. Instrument: Olympus GIF H 190 mid size upper endoscope Monitoring: Vital signs and clinical assessment, continuous EKG monitoring, Pulse oximetry, Carbon Dioxide monitoring and blood pressure monitoring were done throughout the procedure. Procedure: The patient was placed in the left lateral decubitis position and pre-procedure medications were administered and a bite block was placed. The endoscope was inserted into the mouth and advanced under direct vision to the third part of duodenum. A careful inspection was made as the upper endoscope was withdrawn including a retroflexed examination of the proximal stomach; Findings and interventions are described below. Findings: Larynx: Normal Esophagus: Decreased calibre of esophagus with circular rings in the proximal, mid and distal esophagus - (improved since last EGD). A mid size endoscope advanced through the strictures with minimal resistance. Balloon dilation was performed with a 12 mm (36 F) and 13.5 mm (40.5F) CRE ball oon in the proximal and 13.5 and 15 mm (45 F) CRE balloon in the distal esophagus x 60 seconds at each level. Biopsies were obtained from the proximal esophagus to FU on EOE. GE junction at 40 cms, no esophagitis or Ghosh's. Stomach: Mild gastric erythema. Grade 2 flap valve on retroflexed examination of the cardia. Duodenum: Normal bulb and descending duodenum Intervention: Biopsies as noted above Impression and Post Procedure Diagnosis: Endoscopy Findings: ESOPHAGUS: Decreased calibre of esophagus with circular rings in the proximal, mid and distal esophagus - (improved since last EGD). A mid size endoscope advanced through the strictures with minimal resistance. Balloon dilation was performed with a 12 mm (36 F) and 13.5 mm (40.5F) CRE balloon in the proximal and 13.5 and 15 mm (45 F) CRE balloon in the distal esophagus x 60 seconds at each level. Biopsies were obtained from the proximal esophagus to FU on EOE. Plan: Await pathology results Patient has an appointment on 01/05/23 in the GI Clinic with Estrella Colvin FNP-BC. Repeat EGD with dilation in 3-4 months (since esophagus is of a small calibre). Above findings were reviewed with the patient.
[2022-12-19 13:26] VITALS: BP 113/57; PULSE 78; RESP 16; TEMP 36.1; O2SAT 94
[2022-12-19 13:41] VITALS: BP 110/70; PULSE 69; RESP 18; O2SAT 99
[2022-12-19 13:56] VITALS: BP 129/83; PULSE 68; RESP 18; TEMP 36.7; O2SAT 96
== END 2022-12-19 14:28 | disposition home or self-care (01) ==
PROVIDERS: PCP Internal Medicine; Visit Provider Internal Medicine Gastroenterology
PROC: 0DJ08ZZ Inspection of Upper Intestinal Tract, Via Natural or Artificial Opening Endoscopic (ICD-10-PCS; CPT 43235; principal; 2022-12-19 12:40)
DX: K20.0 Eosinophilic esophagitis (principal); K22.2 Esophageal obstruction; K44.9 Diaphragmatic hernia without obstruction or gangrene; K21.9 Gastro-esophageal reflux disease without esophagitis; B36.0 Pityriasis versicolor; Z79.899 Other long term (current) drug therapy
CPT/HCPCS: 43249; 43239; 88305; C1726

== ENCOUNTER → 2022-12-19 10:06 | Outpatient (BNV) | payer OTHER, SELFPAY | PROVIDERS: PCP Internal Medicine; Visit Provider Internal Medicine Gastroenterology | DX: R13.10 Dysphagia, unspecified (principal); K20.0 Eosinophilic esophagitis | CPT/HCPCS: 43249 ==

== ENCOUNTER 2023-01-05 16:16 | Outpatient (AMB) | payer OTHER, SELFPAY ==
--- NOTE | 2023-01-05 16:17 | A.OFFVIS_ITS ---
Intake Vital Signs 01/05/23 16:18 Height 5 ft 8 in Weight 238 lb 15.697 oz BMI 36.3 BP 136/82 Blood Pressure Location Lt brachial Position Sitting Pulse 66 Intake Visit Reasons: S/P EGD with possible dilation Intake Note: Patient presents to in office visit today in follow up of EGD. CC: Patient reports he continues to feel like there is something in his throat sometimes and burning sensation. He underwent EGD on 12/19/[address] Tran. Patient reports having nausea before the procedure but not any longer. Denies other GI symptoms or concerns today. Allergies budesonide Allergy (Verified 01/05/23 16:21) Swelling HPI S/P EGD with possible dilation HPI Details LAST VISIT Eosinophilic esophagitis Patient diagnosed with mild eosinophilic esophagitis. We will start him on budesonide at bedtime. Eosinophilic count 5. Continue PPI. Avoid dietary triggers. Avoid food like nuts, seafood, milk, wheat. Will schedule patient for repeat dilation end of November. Patient will call us if he will have worsening symptoms. He will follow-up with us after upper endoscopy, sooner on as needed basis. Patient is agreeable to this plan and verbalizes understanding of instructions. He was given the opportunity to ask questions and all questions answered. ? Thank you for allowing me to participate in his care Plan Medications New budesonide ER 3 mg PO DAILY 12 weeks 84 ea 0RF K20.0 - Eosinophilic esophagitis UPPER ENDOSCOPY: Findings: Larynx: Normal Esophagus: Decreased calibre of esophagus with circular rings in the proximal, mid and distal esophagus - (improved since last EGD). A mid size e ndoscope advanced through the strictures with minimal resistance. Balloon dilation was performed with a 12 mm (36 F) and 13.5 mm (40.5F) CRE balloon in the proximal and 13.5 and 15 mm (45 F) CRE balloon in the distal esophagus x 60 seconds at each level. Biopsies were obtained from the proximal esophagus to FU on EOE. GE junction at 40 cms, no esophagitis or Ghosh's. Stomach: Mild gastric erythema. Grade 2 flap valve on retroflexed examination of the cardia. Duodenum: Normal bulb and descending duodenum Intervention: Biopsies as noted above Impression and Post Procedure Diagnosis: Endoscopy Findings: ESOPHAGUS: Decreased calibre of esophagus with circular rings in the proximal, mid and distal esophagus - (improved since last EGD). A mid size e ndoscope advanced through the strictures with minimal resistance. Balloon dilation was performed with a 12 mm (36 F) and 13.5 mm (40.5F) CRE balloon in the proximal and 13.5 and 15 mm (45 F) CRE balloon in the distal esophagus x 60 seconds at each level. Biopsies were obtained from the proximal esophagus to FU on EOE. Plan: Repeat EGD with dilation in 3-4 months (since esophagus is of a small calibre). PATHOLOGY RESULTS Diagnosis Esophagus, proximal, biopsy: Squamous mucosa with no specific change; no evidence of eosinophilic esophagitis at this time; no columnar mucosa presen TODAY'S VISIT Patient is here today for follow-up and to discuss upper endoscopy results. Biopsy showed no eosinophilic esophagitis. As mentioned above balloon dilation was performed at couple levels for 60 seconds at each level. Recommendation was made for patient to return for additional dilation and upper a GED in 3-4 months. Patient reports that he was having nausea reported procedure currently he is no longer nauseous. Patient feels like when he swallows food gets sticky. Patient is avoiding eating food that it is hard. Patient reports that she is doing well. Patient is drinking fluids without any issues. Patient denies dyspepsia or odynophagia. Denies any other GI concerning symptoms. [facility] Medical History Hiatal hernia Tinea versicolor Esophagitis Surgical History Hx of esophagogastroduodenoscopy History of dental surgery Family History Mother No problems noted. Father Heart attack Diabetes Brother Mental health disorder Substance use disorder Housing: Apartment Alcohol intake: never Patient Tobacco Use Status: Never used Tobacco e-Cigarette/Vaping Use: Never Used Second Hand Smoke Exposure: No service: No Current occupational status: employed Cognitive needs: No Hearing needs: No Vision needs: Yes (Glasses) Review of Systems Const Denies weight gain and Denies weight loss ENT Reports no additional complaints, Reports dysphagia and Denies odynophagia Card Reports no additional complaints Resp Reports no additional complaints GI Denies abdominal pain, Denies belching, Denies melena, Denies bloating, Denies change in bowel habits, Reports dysphagia, Denies excessive flatus, Denies dyspepsia, Denies heartburn, Denies diarrhea, Denies loose stools, Denies nausea, Denies odynophagia and Denies vomiting Reports no additional complaints Musc Reports no additional complaints Neuro Reports no additional complaints Psych Reports no additional complaints Endo Reports no additional complaints Physical Exam Vital Signs: Last Vital Signs Pulse 66 01/05/23 16:18 BP 136/82 01/05/23 16:18 BMI result Body Mass Index 36.3 Const General: healthy appearing, no acute distress and well developed Nutritional Appearance: obese Orientation/consciousness: patient oriented x3 HEENT Head: Yes normal to inspection, Yes normocephalic and Yes atraumatic Face and sinus: Yes normal facial exam Mouth: Normal oral and palatal mucosa present Throat: Yes posterior oropharynx normal, Yes tonsils normal and Yes uvula midline Eyes General: appearance normal, both eyes and all related structures Neck Neck: Yes normal visual inspection, Yes full ROM and Yes trachea midline Thyroid: Thyroid normal Resp Effort & Inspection: normal respiratory effort, able to speak in complete sentences, no tracheal deviation and symmetric chest movement Auscultation: clear to auscultation bilaterally Cardio Rate: regular rate Heart sounds: S1 normal heart sound present and S2 normal heart sound present GI Inspection: Yes normal to inspection, No distended and Yes obesity Palpation (GI): Soft to palpation, not firm, nontender and No hepatosplenomegaly present Auscultation: normal bowel sounds General: Yes no CVA tenderness Back/Spine/Pelvis Back: no CVA tenderness Skin General skin exam: elasticity normal, turgor normal and dry skin Neuro General: patient oriented x3 Psych Appearance: grossly normal Mental Status: mental status grossly normal Assessment & Plan Assessment & Plan (1) Dysphagia: Code(s): R13.10 - Dysphagia, unspecified Qualifiers: Dysphagia type: pharyngoesophageal phase Qualified Code(s): R13.14 - Dysphagia, pharyngoesophageal phase (2) GERD (gastroesophageal reflux disease): Code(s): K21.9 - Gastro-esophageal reflux disease without esophagitis Qualifiers: Esophagitis presence: with esophagitis Esophagitis bleeding: without hemorrhage Qualified Code(s): K21.00 - Gastro-esophageal reflux disease with esophagitis, without bleeding Plan Patient will continue pantoprazole every morning half an hour before breakfast. Discussed with patient avoiding dietary triggers in late night snacking. Staying upright for minimum 3 hours after meals discussed with patient. Patient will return in 3 months we will discuss going for upper endoscopy with possible dilation. Patient was encouraged to eat smaller bites, chew his meals very well. Avoid eating food that it is hard likes take. Okay to eat ground meat. She patient is agreeable to this plan and verbalizes understanding of instructions. He was given the opportunity to ask questions and all questions answered. Thank you for allowing me to participate in his care Coding Level of Care Code Est Pt Level 3 (85027) Diagnoses Pharyngoesophageal dysphagia R13.14 Dysphagia type: pharyngoesophageal phase Gastroesophageal reflux disease with esophagitis without hemorrhage K21.00 Esophagitis presence: with esophagitis Esophagitis bleeding: without hemorrhage Time Spent (min) 30 Comment 20 minutes spent with patient and additional 10 minutes spent reviewing his records
[2023-01-05 16:18] VITALS: BP 136/82; PULSE 66; BMI 36.3
== END 2023-01-05 16:44 | disposition home or self-care (01) ==
PROVIDERS: PCP Internal Medicine; Visit Provider Nurse Practitioner Family
DX: R13.14 Dysphagia, pharyngoesophageal phase (principal); K21.00 Gastro-esophageal reflux disease with esophagitis, without bleeding
CPT/HCPCS: 99213

== ENCOUNTER → 2023-01-05 16:16 | Outpatient (BNVA) | payer OTHER, SELFPAY | PROVIDERS: PCP Internal Medicine; Visit Provider Nurse Practitioner Family ==

== ENCOUNTER 2023-04-07 15:50 | Outpatient (AMB) | payer OTHER, SELFPAY ==
[2023-04-07 15:56] VITALS: BP 137/71; PULSE 58; BMI 36.9
--- NOTE | 2023-04-07 15:56 | MHC.OFFVIS ---
Intake Vital Signs 04/07/23 15:56 Height 5 ft 8 in Weight 242 lb 8.136 oz BMI 36.9 BP 137/71 Blood Pressure Location Lt brachial Position Sitting Pulse 58 Intake Visit Reasons: 3 month follow up Intake Note: Patient presents to in office visit today in follow up of dysphagia. CC: Patient reports he continues to feel like there is something in his throat sometimes. Denies other GI symptoms today. Occupational Therapy Technician Required: No Accompanied by: Self / Same As Patient Allergies budesonide Allergy (Verified 04/07/23 15:58) Swelling HPI 3 month follow up HPI Details LAST VISIT Dysphagia GERD (gastroesophageal reflux disease) Plan Patient will continue pantoprazole every morning half an hour before breakfast. Discussed with patient avoiding dietary triggers in late night snacking. Staying upright for minimum 3 hours after meals discussed with patient. Patient will return in 3 months we will discuss going for upper endoscopy with possible dilation. Patient was encouraged to eat smaller bites, chew his meals very well. Avoid eating food that it is hard likes take. Okay to eat ground meat. She patient is agreeable to this plan and verbalizes understanding of instructions. He was given the opportunity to ask questions and all questions answered. TODAY'S VISIT Patient is here today for follow-up. He states that he is taking pantoprazole and not eating late at night. He continues to sleep on wedge pillow and still has occasional dysphagia. Patient had dilation performed and was recommended to return for dilation to help with dysphagia due to esophagus of small caliber. Patient denies having choking episodes. Aware of food going done slower when he is trying to swallow. Patient also reports dyspepsia. Denies any nausea or vomiting. Denies any weight loss. Patient denies any issues with anesthesia in the past. No history of sleep apnea and not on any anticoagulation medication [facility] Medical History Hiatal hernia Tinea versicolor Esophagitis Surgical History Hx of esophagogastroduodenoscopy History of dental surgery Family History Mother No problems noted. Father Heart attack Diabetes Brother Mental health disorder Substance use disorder Social History Housing: Apartment Alcohol intake: never Patient Tobacco Use Status: Never used Tobacco e-Cigarette/Vaping Use: Never Used Second Hand Smoke Exposure: No service: No Current occupational status: employed Cognitive needs: No Hearing needs: No Vision needs: Yes (Glasses) Review of Systems Const Denies weight gain and Denies weight loss ENT Reports no additional complaints, Reports dysphagia and Denies odynophagia Card Reports no additional complaints Resp Reports no additional complaints GI Denies abdominal pain, Denies belching, Denies melena, Denies bloating, Denies change in bowel habits, Reports dysphagia, Denies excessive flatus, Reports dyspepsia, Reports heartburn, Denies diarrhea, Denies loose stools, Denies nausea, Denies odynophagia and Denies vomiting Reports no additional complaints Musc Reports no additional complaints Neuro Reports no additional complaints Psych Reports no additional complaints Endo Reports no additional complaints Physical Exam Vital Signs: Last Vital Signs Pulse 58 04/07/23 15:56 BP 137/71 04/07/23 15:56 BMI result Body Mass Index 36.9 Const General: healthy appearing, no acute distress and well developed Nutritional Appearance: obese Orientation/consciousness: patient oriented x3 Resp Effort & Inspection: normal respiratory effort, able to speak in complete sentences, no tracheal deviation and symmetric chest movement Auscultation: clear to auscultation bilaterally Cardio Rate: regular rate GI Inspection: Yes normal to inspection, No distended and Yes obesity Palpation (GI): Soft to palpation, not firm, nontender and No hepatosplenomegaly present Auscultation: normal bowel sounds General: Yes no CVA tenderness Back/Spine/Pelvis Back: no CVA tenderness Skin General skin exam: elasticity normal, turgor normal and dry skin Neuro General: patient oriented x3 Psych Appearance: grossly normal Mental Status: mental status grossly normal Assessment & Plan Assessment & Plan (1) Esophagitis: Code(s): K20.90 - Esophagitis, unspecified without bleeding (2) Dysphagia: Code(s): R13.10 - Dysphagia, unspecified Qualifiers: Dysphagia type: pharyngoesophageal phase Qualified Code(s): R13.14 - Dysphagia, pharyngoesophageal phase (3) GERD (gastroesophageal reflux disease): Code(s): K21.9 - Gastro-esophageal reflux disease without esophagitis Qualifiers: Esophagitis presence: esophagitis presence not specified Qualified Code(s): K21.9 - Gastro-esophageal reflux disease without esophagitis Plan Patient will be booked for upper endoscopy for esophageal dilation. Will change pantoprazole to esomeprazole and we will add famotidine at bedtime. Patient will continue avoiding eating late at night. Staying upright for minimal 3 hours after meals discussed with patient. Patient was encouraged eating smaller meals, chew his food very well. Small bites. I will see him after endoscopy, sooner on as needed basis. Patient is agreeable to this plan and verbalizes understanding of instructions. He was given the opportunity to ask questions and all questions answered. Thank you for allowing me to participate in his care Orders: Orders Vitamin B12 and Folate 04/07/23 R19.7 - Diarrhea, unspecified Vitamin D 25-OH (D2 and D3) 04/07/23 E55.9 - Vitamin D deficiency, unspecified Liver Panel 04/07/23 R74.01 - Elevation of levels of liver transaminase levels Medications: New esomeprazole magnesium (Nexium) 40 mg PO DAILY 30 caps 5RF K21.9 - Gastro-esophageal reflux disease without esophagitis famotidine (Pepcid) 20 mg PO BEDTIME 30 tabs 3RF K21.9 - Gastro-esophageal reflux disease without esophagitis Discontinued pantoprazole Discontinued Reason: Doctor's Order 40 mg PO DAILY 90 tabs 1RF Coding Level of Care Code Est Pt Level 4 (94260) Diagnoses Esophagitis K20.90 Pharyngoesophageal dysphagia R13.14 Dysphagia type: pharyngoesophageal phase Gastroesophageal reflux disease, unspecified whether esophagitis present K21.9 Esophagitis presence: esophagitis presence not specified Time Spent (min) 35 Comment 20 minutes spent with patient and additional 15 minutes spent reviewing his records
== END 2023-04-07 16:21 | disposition home or self-care (01) ==
PROVIDERS: PCP Internal Medicine; Visit Provider Nurse Practitioner Family
DX: K20.90 Esophagitis, unspecified without bleeding (principal); R13.14 Dysphagia, pharyngoesophageal phase; K21.9 Gastro-esophageal reflux disease without esophagitis
CPT/HCPCS: 99214

== ENCOUNTER → 2023-04-07 15:50 | Outpatient (BNVA) | payer OTHER, SELFPAY | PROVIDERS: PCP Internal Medicine; Visit Provider Nurse Practitioner Family ==

== ENCOUNTER 2023-05-08 15:48 | Outpatient (REF) | payer OTHER, SELFPAY | END 2023-05-08 15:49 | disposition home or self-care (01) | LOC: HO.LAB 15:48 | PROVIDERS: PCP Internal Medicine; Visit Provider Nurse Practitioner Family | DX: Z91.09 Other allergy status, other than to drugs and biological substances (principal) | CPT/HCPCS: 36415; 86003 ==

== ENCOUNTER 2023-08-28 09:06 | Day surgery (SDC) | payer OTHER, SELFPAY ==
[2023-08-28 09:20] VITALS: BMI 33.2
[2023-08-28 10:13] VITALS: BP 110/60; PULSE 61; RESP 16; TEMP 36.3; O2SAT 97
[2023-08-28] MEDS: Lactated Ringers 1,000 ML 80 ML IVCONT (10:15)
--- NOTE | 2023-08-28 10:24 | HO.ANESPROP2 ---
[facility] Active Problems Active Problems: All Active Problems Rash (Acute) Annual physical exam (Acute) COVID-19 (Acute) Dysphagia (Acute) Tinea versicolor (Acute) Esophagitis (Acute) Past Medical History Medical History Hiatal hernia Tinea versicolor Esophagitis Family History Family History Mother No problems noted. Father Heart attack Diabetes Brother Mental health disorder Substance use disorder Family history of problems with anesthesia: No Surgical History Surgical History Hx of esophagogastroduodenoscopy History of dental surgery History of Problems with Anesthesia: No Social History Social History Housing: Apartment Alcohol intake: never Patient Tobacco Use Status: Never used Tobacco e-Cigarette/Vaping Use: Never Used Second Hand Smoke Exposure: No Use of substances other than those prescribed or required for medical reasons: No Are you DNR?: No Advance Directives: No Advance Directives Information Provided: Yes service: No Current occupational status: employed Cognitive needs: No Hearing needs: No Vision needs: Yes (Glasses) Meds Allergies Allergy/AdvReac Type Severity Reaction Status Date / Time budesonide Allergy Swelling Verified 04/07/23 15:58 Active Medications: Current Medications Lactated Ringer's (Lr) 1,000 mls @ 80 mls/hr IVCONT .[id number] [facility] Last Admin: 08/28/23 10:15 Dose: 80 mls/hr Exam Height,Weight and Vital Signs: Height 5 ft 9 in Weight 102.058 kg Last Vital Signs Temp 97.3 F 08/28/23 10:13 Pulse 61 08/28/23 10:13 Resp 16 08/28/23 10:13 BP 110/60 08/28/23 10:13 Pulse Ox 97 08/28/23 10:13 O2 Del Method Room Air 08/28/23 10:13 Airway Mallampati Class: II (missing a couple, denies anything loose) TM Dist: >3cm Neck ROM: Full Heart: rrr Lungs: cta Assessment and Plan Assessment Anesthesia Assessment: Anesthesia Plan Discussed and Chart Reviewed Final Anesthetic Review Family History of Problems with Anesthesia: No History of Problems with Anesthesia: No NPO: Yes ASA Class: II Final Preanesthetic Review: No Changes in Pt Med Stat, Meds/Allgs Chart Reviewed and Consent Obtained/Reviewed Patient Risk: Low Procedure Risk: Intermediate Anesthetic Plan Anesthetic Plan: MAC: Disposition: Standard PACU
--- NOTE | 2023-08-28 11:05 | MHC.SHP ---
Pre-Procedural Eval Section A - 24 Hr Update-Section A only Date of Service: 08/28/23 The patient is an INPATIENT: No The patient has been examined within 24 hours of the surgical procedure. The History & Physical has been completed within 30 days and I have reviewed it.: No Section B - Complete if H&P > 30 days Chief Complaint: Dysphagia, FU of EOE Relevant Family History (Specify if Yes): No Relevant Social History: None Present Medications: see Short Stay Collaborative assessment Medical History: Significant History (Hiatal hernia Tinea versicolor Esophagitis) History of Previous Operations: Relevant previous surgery/procedure and date(s) (Hx of esophagogastroduodenoscopy History of dental surgery) Allergies: Allergies Allergy/AdvReac Type Severity Reaction Status Date / Time budesonide Allergy Swelling Verified 04/07/23 15:58 Review of Systems Sugical H&P ROS: Negative: Constitution, Cardiovascular, Respiratory and Gastrointestinal Exam Surgical H&P Exam: Normal: Heart, Normal: Lungs, Normal: Extremities and Normal: Abdomen Plan Diagnosis/Plan: Unchanged I have reviewed the history and physical and performed a pertinent physical examination on my patient. No changes have occurred unless specified. Time Spent With Patient Time: Total time managing care of this patient today ____ minutes.
--- NOTE | 2023-08-28 12:17 | W.PM.OPN ---
Operative Note Operative Note Date of Service: 08/28/23 Narrative: FLEXIBLE TRANSORAL UPPER GASTROINTESTINAL ENDOSCOPY WITH ESOPHAGEAL BALLOON DILATION Pre-op diagnosis: Dysphagia, FU of EOE Post-op diagnosis: same as above Endoscopist:? Manan Tran MD Anesthesia:?MAC UPPER ENDOSCOPY Consent: Indications for the procedure and potential complications of bleeding, perforation, reaction to medications and missed diagnosis were discussed with the patient and informed consent was obtained. Instrument: Olympus GIF H 190 mid size upper endoscope Monitoring: Vital signs and clinical assessment, continuous EKG monitoring, Pulse oximetry, Carbon Dioxide monitoring and blood pressure monitoring were done throughout the procedure. Procedure: The patient was placed in the left lateral decubitis position and pre-procedure medications were administered and a bite block was placed. The endoscope was inserted into the mouth and advanced under direct vision to the third part of duodenum. A careful inspection was made as the upper endoscope was withdrawn including a retroflexed examination of the proximal stomach; Findings and interventions are described below. Findings: Larynx: Normal Esophagus: Decreased calibre of esophagus with circular rings in the proximal, mid and distal esophagus - A mid size endoscope advanced through the strictures with minimal resistance. Balloon dilation was performed with a 14 mm (42 F) CRE balloon in the proximal, mid and distal esophagus x 60 seconds at each level. GE junction at 40 cms, no esophagitis or Ghosh's. Stomach: Mild gastric erythema. Grade 2 flap valve on retroflexed examination of the cardia. Duodenum: Normal bulb and descending duodenum Intervention: Esophageal balloon dilation as noted above Impression and Post Procedure Diagnosis: Endoscopy Findings: ESOPHAGUS: Decreased calibre of esophagus with circular rings in the proximal, mid and distal esophagus - A mid size endoscope advanced through the strictures with minimal resistance. Balloon dilation was performed with a 14 mm (42 F) CRE balloon in the proximal, mid and distal esophagus x 60 seconds at each level. Plan: Pt has a FU appointment on 09/16/23 with Citlalli Colvin NP. Above findings were reviewed with the patient and relevant handouts were given and the discharge area. Repeat EGD with dilation in 6 months.
[2023-08-28 12:20] VITALS: BP 103/47; PULSE 57; RESP 18; TEMP 36.1; O2SAT 92
[2023-08-28 12:34] VITALS: BP 109/55; PULSE 51; RESP 16; O2SAT 92
[2023-08-28 12:42] VITALS: BP 109/55; PULSE 57; RESP 16; TEMP 36.1; O2SAT 95
== END 2023-08-28 13:11 | disposition home or self-care (01) ==
PROVIDERS: PCP Internal Medicine; Visit Provider Internal Medicine Gastroenterology
PROC: (CPT 43249; principal; 2023-08-28 11:10)
DX: R13.14 Dysphagia, pharyngoesophageal phase (principal); K20.80 Other esophagitis without bleeding; Z79.899 Other long term (current) drug therapy; Z88.8 Allergy status to other drugs, medicaments and biological substances
CPT/HCPCS: 43249; C1726; J2704

== ENCOUNTER → 2023-08-28 09:06 | Outpatient (BNV) | payer OTHER, SELFPAY | PROVIDERS: PCP Internal Medicine; Visit Provider Internal Medicine Gastroenterology | DX: R13.10 Dysphagia, unspecified (principal) | CPT/HCPCS: 43249 ==

== ENCOUNTER 2023-09-01 09:13 | Outpatient (REF) | payer OTHER, SELFPAY ==
[2023-09-01 10:21] LABS: Hematocrit 45.8 % (42.0-52.0); Hemoglobin 15.6 g/dl (14.0-18.0); Mean Corpuscular HGB Conc 34.1 g/dl (31.0-36.0); Mean Corpuscular Hemoglobin 30.6 pg (27.0-33.0); Mean Corpuscular Volume 89.8 fL (80.0-98.0); Mean Platelet Volume 12.2 fL (9.4-12.4); Platelet Count 183 X10*3/uL (160-400); Red Cell Distribution Width 12.5 % (11.0-16.0); White Blood Count 5.5 X10*3/uL (4.8-10.8)
[2023-09-01 10:38] LABS: Appearance Urine Clear; Color Urine Dark Yellow; Glucose Urine UA Negative (Negative); Leukocyte Esterase Urine Negative (Negative); Nitrite Urine Negative (Negative); Specific Gravity - Urine >= 1.030 (1.005-1.025); UMIC TRIGGER UA YES; Urine Blood Negative (Negative); Urine Ketones Trace mg/dL (Negative); Urine Protein 30 (1+) mg/dL (Neg-Trace)
[2023-09-01 10:41] LABS: Bacteria Urine None Seen (None Seen); Hyaline Casts Urine 0-2 /LPF (0-2); RBC Urine 0-2 /HPF (0-2); Squamous Epithelial Cell Urine 0-2 /HPF (0-2); WBC Urine 0-5 /HPF (0-5)
[2023-09-01 11:00] LABS: Alanine Aminotransferase 34 U/L (0-40); Albumin Level 4.7 g/dL (3.5-5.0); Alkaline Phosphatase 80 U/L (39-117); Anion Gap 13 (12-20); Aspartate Amino Transferase 20 U/L (5-37); Bilirubin Direct 0.3 mg/dL (0.0-0.5); Blood Urea Nitrogen 16 mg/dL (9-16); Calcium 9.7 mg/dL (8.4-10.2); Carbon Dioxide 28 mmol/L (22-29); Chloride 106 mmol/L (96-108); Cholesterol 163 mg/dL (<200); Estimated Glomerular Filt Rate 56; Glucose Random 99 mg/dL (60-115); HDL Cholesterol 35 mg/dL (>40); LDL Cholesterol Calculated 112 mg/dL (<100); Potassium 4.3 mmol/L (3.3-5.1); Sodium 143 mmol/L (135-145); Total Protein 7.4 g/dL (6.5-8.0); Triglycerides 80 mg/dL (<150)
[2023-09-01 11:23] LABS: Thyroid Stimulating Hormone 1.58 uIU/mL (0.32-4.0)
== END 2023-09-01 09:14 | disposition home or self-care (01) ==
LOC: HO.LAB 09:13
PROVIDERS: PCP Internal Medicine; Visit Provider Internal Medicine
DX: K20.90 Esophagitis, unspecified without bleeding (principal)
CPT/HCPCS: 36415; 80048; 80061; 80076; 81001; 84443; 85027

== ENCOUNTER 2023-09-02 13:22 | Outpatient (AMB) | payer OTHER, SELFPAY ==
--- NOTE | 2023-09-02 13:26 | MHC.PC.OV ---
Vital Signs 09/02/23 13:34 Height 5 ft 9 in Weight 223 lb 2 oz BMI 32.9 BP 110/66 Blood Pressure Location Lt brachial Position Sitting Pulse 63 Pulse Source Pulse Oximeter Pulse Oximetry (%) 97 Oxygen Delivery Method Room Air Intake Visit Reasons: PE Intake Note: Patient is here today for a physical. Production Associate Required: No Land Commissioner: Not Required per policy Accompanied by: Self / Same As Patient Allergies budesonide Allergy (Verified 09/02/23 13:33) Swelling Tobacco use date assessed: 09/02/23 Dental Screening Dental Screen Date: 09/02/23 Did you have a dental visit in the last 12 months?: Yes Did you have a dental problem in the last 6 months where you did not have access to dental care?: No Was dental information given to patient?: Patient has dentist HPI PE HPI Details 37-year-old male presents to the office requesting an annual physical. He recently had blood work done and would like to know the results. In addition, patient has esophagitis. He has had multiple endoscopies and possible dilatation. He is responding well to a combination of PPI and H2 blockers. As a part of the workup he had allergy testing and would like to know the results. Patient reports that the rash on the penis is persisting despite several usages of the ketoconazole ointment. No itching or discharge symptoms. [facility] Medical History Hiatal hernia Tinea versicolor Esophagitis Surgical History (Updated 09/02/23 @ 13:39 by MELVIN Chinchilla) History of endoscopy Hx of esophagogastroduodenoscopy History of dental surgery Family History Mother No problems noted. Father Heart attack Diabetes Brother Mental health disorder Substance use disorder Social History Housing: Apartment Alcohol intake: never Patient Tobacco Use Status: Never used Tobacco e-Cigarette/Vaping Use: Never Used Second Hand Smoke Exposure: No service: No Current occupational status: employed Cognitive needs: No Hearing needs: No Vision needs: Yes (Glasses) Questionnaire PHQ-9 Over the last 2 weeks, how often have you been bothered by any of the following problems? 1. Little interest or pleasure in doing things: not at all 2. Feeling down, depressed, or hopeless: not at all 3. Trouble falling or staying asleep, or sleeping too much: not at all 4. Feeling tired or having little energy: not at all 5. Poor appetite or overeating: not at all 6. Feeling bad about yourself - or that you are a failure or have let yourself or your family down: not at all 7. Trouble concentrating on things, such as reading the newspaper or watching television: not at all 8. Moving or speaking so slowly that other people could have noticed. Or the opposite - being so fidgety or restless that you have been moving around a lot more than usual: not at all 9. Thoughts that you would be better off or of hurting yourself in some way: not at all Total score: 0 Depression Screening Interpretation: Negative Depression Screening Done: Yes Source: Developed by Drs. Kaleb Breen, Thais Kirk, Gregor Omalley and colleagues, with an educational geneva from [employer]. Thrive Questionnaire Date Thrive assessed: 09/02/23 I am a: Patient What is your living situation today?: I have a steady place to live Within the past 12 months, did the food you bought not last and you didn't have the money to get more?: Never true Within the past 12 months, did you worry whether your food would run out before you got money to buy more?: Never true Do you have trouble paying for medicines?: No Do you have trouble getting transportation to medical appointments?: No Do you have trouble paying your heating and electricity bill?: No Do you have trouble taking care of your child, family member or friend?: No Do you have trouble with day-to-day activities such as bathing, preparing meals, shopping, managing finances, etc.?: No Are you currently unemployed and looking for a job?: No Are you interested in more education?: No Currently or been in a relationship where the following occur: No concerns reported THRIVE Score: 0 AUDIT C Alcohol Use Questionnaire (AUDIT-C) 1. How often do you have a drink containing alcohol?: Never Total Score: 0 JENNIFER-7 AMB Questionnaire JENNIFER-7 Date JENNIFER - 7 assessed: 09/02/23 Feeling nervous, anxious, or on edge: 0 = Not at all Not being able to stop or control worryin = Not at all Worrying too much about different things: 0 = Not at all Trouble relaxin = Not at all Being so restless that it is hard to sit still: 0 = Not at all Becoming easily annoyed or irritable: 0 = Not at all Feeling afraid as if something awful might happen: 0 = Not at all Total JENNIFER-7 score (0-4 normal; 5-9 mild; 10-14 moderate; 15-21 severe): 0 Source: Developed by Drs. Kaleb Breen, Thais Kirk, Gregor Omalley and colleagues, with an educational geneva from [employer]. Physical exam (Primary Care) Vital Signs: Last Vital Signs Pulse 63 09/02/23 13:34 BP 110/66 09/02/23 13:34 Pulse Ox 97 09/02/23 13:34 Oxygen Delivery Method Room Air 09/02/23 13:34 BMI result Body Mass Index 32.9 Tobacco/Smoking Status: Tobacco use Status Tobacco use date assessed 09/02/23 09/02/23 13:41 Patient Tobacco Use Status Never used Tobacco 09/02/23 13:41 e-Cigarette/Vaping Use Never Used 09/02/23 13:41 PHQ-9: PHQ-9 Score PHQ-9: Total score 0 09/02/23 13:53 Depression Screening Interpretation: Negative Thrive Assessment: Date of Thrive Assessment Date Thrive assessed 09/02/23 09/02/23 13:41 Currently or been in a relationship where the following occur: No concerns reported Const General: cooperative and healthy appearing Nutritional Appearance: well nourished Orientation/consciousness: patient oriented x3 Limitations: no limitations HENMT Head: Yes normal to inspection Eyes General: appearance normal, both eyes and all related structures Neck Neck: Yes normal visual inspection Chest Chest palpation & inspection: normal palpation of entire chest wall Resp Effort & Inspection: normal respiratory effort Other: Penis: Whitish streak over the glans penis extending to the side of the penis, no surrounding erythema or discomfort. Neuro General: patient oriented x3 Assessment and Plan Assessment & Plan (1) Esophagitis: Code(s): K20.90 - Esophagitis, unspecified without bleeding Plan: Patient has undergone for procedures for dilation of the esophagus. He has now on a combination of H2 cortes and a PPI. Symptoms are reasonably controlled. As a part of the workup, he underwent allergy testing. A copy of the results was given to the patient. Preliminary testing shows peanut allergy. (2) Rash: Code(s): R21 - Rash and other nonspecific skin eruption Plan: Patient has received multiple treatments with ketoconazole with minimal improvement. We will get a dermatology opinion. Orders: Referrals Dermatology Referral N48.1 - Balanitis Medications: Refilled famotidine (Pepcid) 20 mg PO BEDTIME 30 tabs 3RF K21.9 - Gastro-esophageal reflux disease without esophagitis Coding Level of Care Code Est Pt Level 4 (67259) Est Pt Prev Care 18-39y(23238) Diagnoses Esophagitis K20.90 Rash R21
[2023-09-02 13:34] VITALS: BP 110/66; PULSE 63; O2SAT 97; BMI 32.9
== END 2023-09-02 15:46 | disposition home or self-care (01) ==
PROVIDERS: PCP Internal Medicine; Visit Provider Internal Medicine
DX: Z00.00 Encounter for general adult medical examination without abnormal findings (principal); K20.90 Esophagitis, unspecified without bleeding; R21 Rash and other nonspecific skin eruption
CPT/HCPCS: 99395

== ENCOUNTER 2023-09-16 15:46 | Outpatient (AMB) | payer OTHER, SELFPAY ==
--- NOTE | 2023-09-16 16:01 | MHC.OFFVIS ---
Vital Signs 09/16/23 16:02 Height 5 ft 9 in Weight 220 lb 0.341 oz BMI 32.5 BP 108/66 Blood Pressure Location Rt brachial Position Sitting Pulse 70 Pulse Source Pulse Oximeter Pulse Oximetry (%) 99 Oxygen Delivery Method Room Air Intake Visit Reasons: f/u EGD w/ Dil Intake Note: Eduardo presents in office today for a scheduled post op FUV. CC; Pt denies any complications or new concerns post op. Pt is here to discuss results of the s/p Pt would also like to discuss results of RAST. Pt also needs a refill of nexium. [employer] Assistant Required: No Allergies budesonide Allergy (Verified 09/16/23 16:02) Swelling HPI HPI f/u EGD w/ Dil: Details: LAST VISIT: Esophagitis Dysphagia GERD (gastroesophageal reflux disease) Plan Patient will be booked for upper endoscopy for esophageal dilation. Will change pantoprazole to esomeprazole and we will add famotidine at bedtime. Patient will continue avoiding eating late at night. Staying upright for minimal 3 hours after meals discussed with patient. Patient was encouraged eating smaller meals, chew his food very well. Small bites. I will see him after endoscopy, sooner on as needed basis. Patient is agreeable to this plan and verbalizes understanding of instructions. He was given the opportunity to ask questions and all questions answered. ? Thank you for allowing me to participate in his care Orders Orders Vitamin B12 and Folate 04/07/23 R19.7 Vitamin D 25-OH (D2 and D3) 04/07/23 E55.9 Liver Panel 04/07/23 R74.01 Medications New esomeprazole magnesium (Nexium) 40 mg PO DAILY 30 caps 5RF K21.9 famotidine (Pepcid) 20 mg PO BEDTIME 30 tabs 3RF K21.9 Discontinued pantoprazole Discontinued Reason: Doctor's Order 40 mg PO DAILY 90 tabs 1RF UPPER ENDOSCOPY Findings: Larynx: Normal Esophagus: Decreased calibre of esophagus with circular rings in the proximal, mid and distal esophagus - A mid size endoscope advanced through the strictures with minimal resistance. Balloon dilation was performed with a 14 mm (42 F) CRE balloon in the proximal, mid and distal esophagus x 60 seconds at each level. GE junction at 40 cms, no esophagitis or Ghosh's. Stomach: Mild gastric erythema. Grade 2 flap valve on retroflexed examination of the cardia. Duodenum: Normal bulb and descending duodenum Intervention: Esophageal balloon dilation as noted above Impression and Post Procedure Diagnosis: Endoscopy Findings: ESOPHAGUS: Decreased calibre of esophagus with circular rings in the proximal, mid and distal esophagus - A mid size endoscope advanced through the strictures with minimal resistance. Balloon dilation was performed with a 14 mm (42 F) CRE balloon in the proximal, mid and distal esophagus x 60 seconds at each level. Plan: Above findings were reviewed with the patient and relevant handouts were given and the discharge area. Repeat EGD with dilation in 6 months. TODAY'S VISIT Patient is here today for follow-up and to discuss upper endoscopy results. Balloon dilation was performed. Patient states that he is doing little better. Swallowing easier, however he still is very careful. Denies any ill effects from anesthesia or procedure itself. Next endoscopy with balloon dilation recommended in 6 months. Patient needs refer for Nexium. Discussed with him allergen results multiple sensitivities to different food that was discussed with patient. Recommendation for patient to speak to PCP to refer him to laundry attendant. Patient denies any nausea or vomiting. Denies dyspepsia, dysphagia or odynophagia. Patient denies any melena or hematochezia. Patient is trying to exercise and lose weight. Since last visit patient lost 22 lb. [facility] Medical History Hiatal hernia Tinea versicolor Esophagitis Surgical History History of endoscopy Hx of esophagogastroduodenoscopy History of dental surgery Family History Mother No problems noted. Father Heart attack Diabetes Brother Mental health disorder Substance use disorder Social History Housing: Apartment Alcohol intake: never Patient Tobacco Use Status: Never used Tobacco e-Cigarette/Vaping Use: Never Used Second Hand Smoke Exposure: No service: No Current occupational status: employed Cognitive needs: No Hearing needs: No Vision needs: Yes (Glasses) Review of Systems Const All systems reviewed & are unremarkable except as noted in HPI and below Denies weight gain and Denies weight loss ENT Reports no additional complaints, Denies dysphagia and Denies odynophagia Card Reports no additional complaints Resp Reports no additional complaints GI Denies abdominal pain, Denies belching, Denies melena, Denies bloating, Denies change in bowel habits, Denies dysphagia, Denies excessive flatus, Denies dyspepsia, Denies heartburn, Denies diarrhea, Denies loose stools, Denies nausea, Denies odynophagia and Denies vomiting Reports no additional complaints Musc Reports no additional complaints Neuro Reports no additional complaints Psych Reports no additional complaints Endo Reports no additional complaints Physical Exam Vital Signs: Last Vital Signs Pulse 70 09/16/23 16:02 BP 108/66 09/16/23 16:02 Pulse Ox 99 09/16/23 16:02 Oxygen Delivery Method Room Air 09/16/23 16:02 BMI result Body Mass Index 32.5 Const General: healthy appearing and no acute distress Nutritional Appearance: obese Orientation/consciousness: patient oriented x3 Resp Effort & Inspection: normal respiratory effort, able to speak in complete sentences, no tracheal deviation and symmetric chest movement Auscultation: clear to auscultation bilaterally Cardio Rate: regular rate GI Inspection: Yes normal to inspection, No distended and Yes obesity Palpation (GI): Soft to palpation, not firm, nontender and No hepatosplenomegaly present Auscultation: normal bowel sounds General: Yes no CVA tenderness Back/Spine/Pelvis Back: no CVA tenderness Skin General skin exam: elasticity normal, turgor normal and dry skin Neuro General: patient oriented x3 Psych Appearance: grossly normal Mental Status: mental status grossly normal Assessment & Plan Assessment & Plan (1) Esophagitis: Code(s): K20.90 - Esophagitis, unspecified without bleeding Category: Medical (2) Dysphagia: Code(s): R13.10 - Dysphagia, unspecified Category: Medical Qualifiers: Dysphagia type: pharyngoesophageal phase Qualified Code(s): R13.14 - Dysphagia, pharyngoesophageal phase (3) GERD (gastroesophageal reflux disease): Code(s): K21.9 - Gastro-esophageal reflux disease without esophagitis Qualifiers: Esophagitis presence: esophagitis presence not specified Qualified Code(s): K21.9 - Gastro-esophageal reflux disease without esophagitis Plan Continue Nexium. Continue avoiding dietary triggers and late night snacking. Staying upright for minimum 3 hours after meals discussed with patient. Patient will continue taking Nexium in the morning and famotidine at bedtime. Increase fluid intake and activity to promote better bowel motility. Patient will continue exercise and lose weight. Patient requesting to be sent to laundry attendant. Referral sent. He will return after his endoscopy, sooner if clinically necessary. Patient is agreeable to this plan and verbalizes understanding of instructions. He was given the opportunity to ask questions and all questions answered. Thank you for allowing me to participate in his care Orders: Referrals Allergy & Immunology Referral K20.90 - Esophagitis, unspecified without bleeding Medications: Refilled esomeprazole magnesium (Nexium) 40 mg PO DAILY 90 caps 5RF K21.9 - Gastro-esophageal reflux disease without esophagitis famotidine (Pepcid) 20 mg PO BEDTIME 90 tabs 3RF K21.9 - Gastro-esophageal reflux disease without esophagitis Coding Level of Care Code Est Pt Level 3 (98096) Diagnoses Esophagitis K20.90 Pharyngoesophageal dysphagia R13.14 Dysphagia type: pharyngoesophageal phase Gastroesophageal reflux disease, unspecified whether esophagitis present K21.9 Esophagitis presence: esophagitis presence not specified Time Spent (min) 30 Comment 20 minutes spent with patient and additional 10 minutes spent reviewing his records
[2023-09-16 16:02] VITALS: BP 108/66; PULSE 70; O2SAT 99; BMI 32.5
== END 2023-09-16 16:40 | disposition home or self-care (01) ==
PROVIDERS: PCP Internal Medicine; Visit Provider Nurse Practitioner Family
DX: K20.90 Esophagitis, unspecified without bleeding (principal); R13.14 Dysphagia, pharyngoesophageal phase; K21.9 Gastro-esophageal reflux disease without esophagitis
CPT/HCPCS: 99213

== ENCOUNTER → 2023-09-16 15:46 | Outpatient (BNVA) | payer OTHER, SELFPAY | PROVIDERS: PCP Internal Medicine; Visit Provider Nurse Practitioner Family ==

== ENCOUNTER 2024-03-04 07:49 | Day surgery (SDC) | payer OTHER, SELFPAY ==
[2024-03-02 14:15] VITALS: BMI 32.5
--- NOTE | 2024-03-03 09:35 | P.CONAN_ITS ---
Documented by User: Mirtha Randhawa NP 03/03/24 09:35 HPI - Anesthesia Eval Consult details Narrative: 38yo M for Upper Endoscopy with Balloon Dilitation PMFSH Active Problems Active Problems: All Active Problems Dysphagia (Acute) COVID-19 (Acute) Annual physical exam (Acute) Rash (Acute) Tinea versicolor (Acute) Esophagitis (Acute) Past Medical History Medical History Hiatal hernia Tinea versicolor Esophagitis Family History Family History Mother No problems noted. Father Heart attack Diabetes Brother Mental health disorder Substance use disorder Family history of problems with anesthesia: No Surgical History Surgical History (Updated 03/02/24 @ 14:13 by Roxy Phillips RN) Hx of esophagogastroduodenoscopy History of dental surgery History of Problems with Anesthesia: No Social History Social History Housing: Apartment Are you a primary personal care worker to a significant other at home: No Do you presently have visiting nurse or other home services: No Alcohol intake: never Patient Tobacco Use Status: Never used Tobacco e-Cigarette/Vaping Use: Never Used Second Hand Smoke Exposure: No Use of substances other than those prescribed or required for medical reasons: No Have you been hit, kicked, punched, or otherwise hurt by someone within the past year? If so, by whom?: No Are you DNR?: No Advance Directives: No Advance Directives Information Provided: Yes Recently lost weight without trying: No Nutrition Risks: No Nutritional Risk Poor oral hygiene: No service: No Current occupational status: employed Cognitive needs: No Hearing needs: No Vision needs: Yes (Glasses) Meds Allergies Allergy/AdvReac Type Severity Reaction Status Date / Time budesonide Allergy Swelling Verified 03/04/24 07:58 Exam Height,Weight and Vital Signs: Height 5 ft 9 in Weight 99.79 kg Assessment and Plan Assessment Anesthesia Assessment: Chart Reviewed Final Anesthetic Review Family History of Problems with Anesthesia: No History of Problems with Anesthesia: No Documented by User: Unique Key MD 03/04/24 09:08 [facility] Past Medical History Medical History Hiatal hernia Tinea versicolor Esophagitis Family History Family History Mother No problems noted. Father Heart attack Diabetes Brother Mental health disorder Substance use disorder Surgical History Surgical History (Updated 03/02/24 @ 14:13 by Roxy Phillips RN) Hx of esophagogastroduodenoscopy History of dental surgery Social History Social History Housing: Apartment Are you a primary personal care worker to a significant other at home: No Do you presently have visiting nurse or other home services: No Alcohol intake: never Patient Tobacco Use Status: Never used Tobacco e-Cigarette/Vaping Use: Never Used Second Hand Smoke Exposure: No Use of substances other than those prescribed or required for medical reasons: No Have you been hit, kicked, punched, or otherwise hurt by someone within the past year? If so, by whom?: No Are you DNR?: No Advance Directives: No Advance Directives Information Provided: Yes Recently lost weight without trying: No Nutrition Risks: No Nutritional Risk Poor oral hygiene: No service: No Current occupational status: employed Cognitive needs: No Hearing needs: No Vision needs: Yes (Glasses) Meds Allergies Allergy/AdvReac Type Severity Reaction Status Date / Time budesonide Allergy Swelling Verified 03/04/24 07:58 Exam Airway Mallampati Class: II TM Dist: >3cm Neck ROM: Full Heart: rrr Lungs: cta Assessment and Plan Assessment Anesthesia Assessment: Anesthesia Plan Discussed Final Anesthetic Review NPO: Yes ASA Class: II Final Preanesthetic Review: No Changes in Pt Med Stat, Meds/Allgs Chart Reviewed and Consent Obtained/Reviewed Patient Risk: Low Procedure Risk: Intermediate Anesthetic Plan Anesthetic Plan: MAC: Disposition: Standard PACU
[2024-03-04 07:59] VITALS: BMI 32.9
[2024-03-04 08:20] VITALS: BP 110/72; PULSE 57; RESP 14; TEMP 36.7; O2SAT 97
[2024-03-04] MEDS: Lactated Ringers 1,000 ML 100 ML IVCONT (08:20)
--- NOTE | 2024-03-04 09:08 | MHC.SHP ---
Pre-Procedural Eval Section A - 24 Hr Update-Section A only Date of Service: 03/04/24 The patient is an INPATIENT: No The patient has been examined within 24 hours of the surgical procedure. The History & Physical has been completed within 30 days and I have reviewed it.: No Section B - Complete if H&P > 30 days Chief Complaint: Dysphagia, pharyngoesophageal phase Relevant Family History (Specify if Yes): No Relevant Social History: None Present Medications: see Short Stay Collaborative assessment Medical History: Significant History (Hiatal hernia Tinea versicolor Esophagitis) History of Previous Operations: Relevant previous surgery/procedure and date(s) (Hx of esophagogastroduodenoscopy History of dental surgery) Allergies: Allergies Allergy/AdvReac Type Severity Reaction Status Date / Time budesonide Allergy Swelling Verified 03/04/24 07:58 Review of Systems Sugical H&P ROS: Negative: Constitution, Cardiovascular, Respiratory and Gastrointestinal Exam Surgical H&P Exam: Normal: Heart, Normal: Lungs, Normal: Extremities and Normal: Abdomen Plan Diagnosis/Plan: Unchanged I have reviewed the history and physical and performed a pertinent physical examination on my patient. No changes have occurred unless specified. Time Spent With Patient Time: Total time managing care of this patient today ____ minutes.
--- NOTE | 2024-03-04 09:34 | W.PM.OPN ---
Operative Note Operative Note Date of Service: 03/04/24 Narrative: FLEXIBLE TRANSORAL UPPER GASTROINTESTINAL ENDOSCOPY WITH BIOPSIES AND ESOPHAGEAL DILATION WITH GUIDE WIRE Pre-op diagnosis: Dysphagia, FU of EOE Post-op diagnosis: same Endoscopist:? Manan Tran MD Anesthesia:?MAC UPPER ENDOSCOPY Consent: Indications for the procedure and potential complications of bleeding, perforation, reaction to medications and missed diagnosis were discussed with the patient and informed consent was obtained. Instrument: Olympus GIF H 190 mid size upper endoscope Monitoring: Vital signs and clinical assessment, continuous EKG monitoring, Pulse oximetry, Carbon Dioxide monitoring and blood pressure monitoring were done throughout the procedure. Procedure: The patient was placed in the left lateral decubitis position and pre-procedure medications were administered and a bite block was placed. The endoscope was inserted into the mouth and advanced under direct vision to the third part of duodenum. A careful inspection was made as the upper endoscope was withdrawn including a retroflexed examination of the proximal stomach; Findings and interventions are described below. Findings: Larynx: Normal Esophagus: Decreased calibre of esophagus with circular rings and scattered white exudates in the proximal, mid and distal esophagus. GE junction at 40 cms, no Ghosh's. A mid size endoscope advanced through the strictures with minimal resistance. Dilation was performed with a 12 mm (36 F) and a 14 mm (42 F) savory dilator over a guide wire with mild to moderate resistance on passage of each dilator. Biopsies were obtained from proximal, mid and distal esophagus to follow-up on EOE Stomach: Mild gastric erythema. Grade 2 flap valve on retroflexed examination of the cardia. Duodenum: Normal bulb and descending duodenum Intervention: Biopsies and esophageal dilation as noted above Impression and Post Procedure Diagnosis: Endoscopy Findings: ESOPHAGUS: Decreased calibre of esophagus with circular rings and scattered white exudates in the proximal, mid and distal esophagus. A mid size endoscope advanced through the strictures with minimal resistance. Dilation was performed with a 12 mm (36 F) and a 14 mm (42 F) savory dilator over a guide wire with mild to moderate resistance on passage of each dilator. STOMACH: Mild gastritis DUODENUM: Normal Plan: Pt has a FU appointment on 03/18/24 with Citlalli Colvin NP Above findings were reviewed with the patient and relevant handouts were given and the discharge area. Repeat EGD with dilation in 3 months. BIOPSIES SHOWED: A. Esophagus, distal, biopsy: Active esophagitis (maximum eosinophil count over 50 per high powered field) with eosinophilic microabscess formation and slough. B. Esophagus, mid, biopsy: Active esophagitis (maximum eosinophil count 20 per high powered field). C. Esophagus, proximal, biopsy: Active esophagitis (maximum eosinophil count 28 per high powered field). Comment: The findings are consistent with eosinophilic esophagitis in the proper clinical context. Pt continues to have a high eosinophil count despite high-dose omeprazole. Consider switching to topical steroids - budesonide oral suspension and an elimination diet.
[2024-03-04 09:36] VITALS: BP 97/53; PULSE 74; RESP 16; TEMP 36.1; O2SAT 97
[2024-03-04 09:51] VITALS: BP 106/63; PULSE 64; RESP 16; O2SAT 94
[2024-03-04 10:06] VITALS: BP 122/77; PULSE 71; RESP 16; TEMP 36.1; O2SAT 96
== END 2024-03-04 10:55 | disposition home or self-care (01) ==
PROVIDERS: PCP Internal Medicine; Visit Provider Internal Medicine Gastroenterology
PROC: (CPT 43248; principal; 2024-03-04 09:20)
DX: K22.2 Esophageal obstruction (principal); K29.60 Other gastritis without bleeding; K20.80 Other esophagitis without bleeding; R13.14 Dysphagia, pharyngoesophageal phase; K21.9 Gastro-esophageal reflux disease without esophagitis; Z79.899 Other long term (current) drug therapy
CPT/HCPCS: 43248; 43239; 88305; C1769; J1596; J2003; J2704

== ENCOUNTER 2024-03-07 01:11 | Emergency (ER) | payer OTHER, SELFPAY ==
--- NOTE | 2024-03-07 | ECG_ITS ---
Test Reason : TACHY Blood Pressure : */* mmHG Vent. Rate : 79 BPM Atrial Rate : * BPM P-R Int : * ms QRS Dur : 130 ms QT Int : 416 ms P-R-T Axes : * 74 54 degrees QTcB Int : 477 ms Wide QRS rhythm Non-specific intra-ventricular conduction block Anterolateral infarct , age undetermined Abnormal ECG No previous ECGs available Referred By: Generic ED Physician Electronically Signed By:
--- NOTE | ~2024-03-07 | XR_ITS ---
CLINICAL HISTORY: sob 1 view chest x-ray Comparison: None Findings: No consolidation, pneumothorax, or pleural effusion accounting for mild artifacts from soft tissues. Cardiac silhouette and mediastinal contours are at the upper limits of normal. Osseous structures are unremarkable for technique. IMPRESSION: No consolidation. This document has been electronically signed by: Daniele Poe MD on 03/07/2024 02:20:32
[2024-03-07 01:12] VITALS: BP 128/70; PULSE 90; RESP 16; TEMP 36.9; O2SAT 99; BMI 32.2
--- NOTE | 2024-03-07 02:54 | ED_ITS ---
HPI - General Adult General Chief complaint: General Medical Stated complaint: elevated heart rate, tight throat Time Seen by Provider: 03/07/24 02:43 Source: patient Mode of arrival: ambulatory Limitations: no limitations History of Present Illness ED Provider: Dr. Johana Braxton HPI narrative: patient comes to emergency room complaining of elevated heart rate. Patient states that he is concerned that his heart rate is between 90 and 100 per his apple watch. Patient denies chest pain shortness of breath. Patient states that usually his heart rate is around 60. Patient states that he has been feeling anxious / concerned about his heart rate. Patient states that he woke up from his sleep, check his heart rate on his apple watch and that is how he noticed. Related Data Previous Rx's ?Medication ?Instructions ?Recorded esomeprazole magnesium 40 mg 40 mg PO DAILY #90 caps 09/16/23 capsule,delayed release (Nexium) famotidine 20 mg tablet (Pepcid) 20 mg PO BEDTIME #90 tabs 09/16/23 Allergies Allergy/AdvReac Type Severity Reaction Status Date / Time budesonide Allergy Swelling Verified 03/07/24 01:15 Review of Systems 2 Review of Systems: Constitutional : No Weight loss, No Fever, No Chills, No Night Sweats, No Fatigue, No Malaise ENT/Mouth : No Hearing loss, No Ear Pain, No Nasal Congestion, No Sinus Pain, No Hoarseness, No sore throat, No Rhinorrhea, No Swallowing Difficulty Eyes: No Eye Pain, No Swelling, No Redness, No Foreign Body, No Discharge, No Vision Changes Cardiovascular : No Chest Pain, No SOB, No Dyspnea on Exertion, No Orthopnea, No Edema, No Palpitations , complaining of elevated heart rate Respiratory : No Cough, No Sputum, No Wheezing, No Smoke Exposure, No Dyspnea Gastrointestinal : No Nausea, No Vomiting, No Diarrhea, No Constipation, No abdominal Pain, No Hematochezia, No Melena Genitourinary : no irregular bleeding, No Dysuria, No Urinary Frequency, No Hematuria, No Urinary Incontinence, No Urgency, No Flank Pain, No Urinary Flow Changes, No Hesitancy Musculoskeletal : No joint pain, No Myalgias, No Joint Swelling Skin : No Skin Lesions, No rash Neuro : No Weakness, No Numbness, No Paresthesias, No Loss of Consciousness, No Dizziness, No Headache Psych : No Anxiety/Panic, No Depression, No SI/HI/AH/VH, No Social Issues, Heme/Lymph: No Bruising, No Bleeding,No Lymphadenopathy Endocrine : No Polyuria, No Polydipsia, No Temperature Intolerance [facility] Past Medical History Medical History Hiatal hernia Tinea versicolor Esophagitis Surgical History (Updated 03/02/24 @ 14:13 by Roxy Phillips RN) Hx of esophagogastroduodenoscopy History of dental surgery Family History Family History Mother No problems noted. Father Heart attack Diabetes Brother Mental health disorder Substance use disorder Social History Social History Housing: Apartment Are you a primary home care administrator to a significant other at home: No Do you presently have visiting nurse or other home services: No Alcohol intake: never Patient Tobacco Use Status: Never used Tobacco Smoked in Last 30 Days: No e-Cigarette/Vaping Use: Never Used Second Hand Smoke Exposure: No Use of substances other than those prescribed or required for medical reasons: No Advance Directives: No Advance Directives Information Provided: Yes Do you have a plan to hurt others: No Plan service: No Current occupational status: employed Cognitive needs: No Hearing needs: No Vision needs: Yes (Glasses) Physical Exam ED Vital Signs: Vital Signs - 24 hr 03/07/24 01:12 Temperature 98.4 F Pulse Rate 90 Respiratory Rate 16 Blood Pressure 128/70 Pulse Oximetry 99 Oxygen Delivery Method Room Air BMI result Body Mass Index 32.2 Const Other: Appearance: Alert. Oriented X3. No acute distress. Eyes: Pupils equal, round and reactive to light. ENT: Pharynx normal. Neck: Normal inspection. Neck supple. No lymph nodes noted. No crepitus CVS: Normal heart rate and rhythm. Pulses normal. Normal S1 and S2 Respiratory: No respiratory distress. Breath sounds normal. No Wheezing. No rales Abdomen: Soft and nontender. No rigidity. No distention. Skin: Skin warm and dry. Normal skin color. Normal skin turgor. Extremities: No lower extremity edema. No Lacerations. No Rash Neuro: Oriented X 3. No motor deficit. No sensory deficit. Moving all extremities. No slurred speech. CN 2 through 12 grossly intact Psych: calm, cooperative, normal affect Medical Decision Making Medical Decision Making [facility] Narrative: my interpretation of EKG: Normal sinus rhythm, heart rate 83, no ST segment depression or elevation, nonspecific T-wave inversion in lead 3, QTC 451 patient's hematology and chemistry do not show any acute abnormality. Normal TSH. I discussed with the patient to the heart rate between 90 and 100 is still considered normal. Differential Diagnosis Differential Diagnoses: The differential diagnosis associated with the presentation includes ( SVT, sinus tachycardia, anxiety) Lab Data [facility] Lab Attestation statement: I reviewed the patient's lab results. 03/07/24 03:03 03/07/24 03:03 Labs: Lab Results 03/07/24 Range/Units 03:03 WBC 8.3 (4.8-10.8) X10*3/uL RBC 5.14 (4.60-5.80) X10*6/uL Hgb 15.6 (14.0-18.0) g/dl Hct 45.1 (42.0-52.0) % MCV 87.7 (80.0-98.0) fL MCH 30.4 (27.0-33.0) pg MCHC 34.6 (31.0-36.0) g/dl RDW 12.5 (11.0-16.0) % Plt Count 196 (160-400) X10*3/uL MPV 11.0 (9.4-12.4) fL Immature Gran % (Auto) 0.4 (0.0-0.4) % Neut % (Auto) 64.3 (45-73) % Lymph % (Auto) 25.8 (20-40) % [place] % (Auto) 7.0 (2-11) % Eos % (Auto) 1.9 (0-4) % Baso % (Auto) 0.6 (0-2) % Lymph # (Auto) 2.1 (1.2-4.9) X10*3/uL [place] # (Auto) 0.6 (0.1-1.2) X10*3/uL Eos # (Auto) 0.2 (0.0-0.4) X10*3/uL Baso # (Auto) 0.1 (0.0-0.2) X10*3/uL Abs Immat Gran (auto) 0.03 (0.00-0.03) X10*3/uL Absolute Neuts (auto) 5.3 (2.0-8.3) x10*3/uL Absolute Nucleated RBC 0.000 (0.0-0.012) X10*3/uL Nucleated RBC % (auto) 0.0 (0.0-0.2) /100WBC Sodium 141 (135-145) mmol/L Potassium 4.1 (3.3-5.1) mmol/L Chloride 106 (96-108) mmol/L Carbon Dioxide 25 (22-29) mmol/L Anion Gap 14 (12-20) BUN 18 H (9-16) mg/dL Creatinine 1.34 (0.5-1.4) mg/dL Estim Creat Clear Calc 84.9 Estimated GFR 59 Random Glucose 102 (60-115) mg/dL Calcium 9.6 (8.4-10.2) mg/dL Total Bilirubin 0.5 (0.0-1.0) mg/dL Direct Bilirubin 0.2 (0.0-0.5) mg/dL AST 25 (5-37) U/L ALT 47 H (0-40) U/L Alkaline Phosphatase 79 (39-117) U/L Troponin I High Sens 14.4 (<3.5-35.0) ng/L Total Protein 7.7 (6.5-8.0) g/dL Albumin 4.5 (3.5-5.0) g/dL TSH 2.64 (0.32-4.0) uIU/mL Discharge Plan Discharge Clinical Impression: Heart rate fast Patient Disposition: Home, Self-Care Instructions: Normal Exam (ED) Additional Instructions: Please follow-up with your primary care physician tomorrow. If you have any worsening or new symptoms, please return to the emergency room or call 911 Prescriptions: No Action esomeprazole magnesium [Nexium] 40 mg capsule,delayed release(DR/EC) 40 mg PO DAILY Qty: 90 5RF famotidine [Pepcid] 20 mg tablet 20 mg PO BEDTIME Qty: 90 3RF Print Language: Angolan
[2024-03-07 03:13] LABS: MANUAL DIFF FLAG NO
[2024-03-07 03:14] LABS: Basophils Absolute Auto 0.1 X10*3/uL (0.0-0.2); Basophils Percent Auto 0.6 % (0-2); Eosinophils Absolute Auto 0.2 X10*3/uL (0.0-0.4); Eosinophils Percent Auto 1.9 % (0-4); Hematocrit 45.1 % (42.0-52.0); Hemoglobin 15.6 g/dl (14.0-18.0); Imm Gran Abs Auto 0.03 X10*3/uL (0.00-0.03); Imm Gran Pct Auto 0.4 % (0.0-0.4); Lymphocytes Absolute Auto 2.1 X10*3/uL (1.2-4.9); Lymphocytes Percent Auto 25.8 % (20-40); Mean Corpuscular HGB Conc 34.6 g/dl (31.0-36.0); Mean Corpuscular Hemoglobin 30.4 pg (27.0-33.0); Mean Corpuscular Volume 87.7 fL (80.0-98.0); Monocytes Absolute Auto 0.6 X10*3/uL (0.1-1.2); Neutrophils Absolute Auto 5.3 x10*3/uL (2.0-8.3); Neutrophils Percent Auto 64.3 % (45-73); Platelet Count 196 X10*3/uL (160-400); Red Blood Count 5.14 X10*6/uL (4.60-5.80); Red Cell Distribution Width 12.5 % (11.0-16.0); White Blood Count 8.3 X10*3/uL (4.8-10.8)
[2024-03-07 03:34] LABS: Troponin-I High Sensitivity 14.4 ng/L (<3.5-35.0)
[2024-03-07 03:38] LABS: Alanine Aminotransferase 47 U/L (0-40); Albumin Level 4.5 g/dL (3.5-5.0); Anion Gap 14 (12-20); Aspartate Amino Transferase 25 U/L (5-37); Bilirubin Direct 0.2 mg/dL (0.0-0.5); Bilirubin Total 0.5 mg/dL (0.0-1.0); Blood Urea Nitrogen 18 mg/dL (9-16); Calcium 9.6 mg/dL (8.4-10.2); Carbon Dioxide 25 mmol/L (22-29); Chloride 106 mmol/L (96-108); Creatinine Clr Calc Pharmacy 84.9; Estimated Glomerular Filt Rate 59; Glucose Random 102 mg/dL (60-115); Potassium 4.1 mmol/L (3.3-5.1); Sodium 141 mmol/L (135-145); Total Protein 7.7 g/dL (6.5-8.0)
[2024-03-07 03:46] LABS: Alkaline Phosphatase 79 U/L (39-117)
[2024-03-07 03:48] LABS: TSH reflex Free T4 2.64 uIU/mL (0.32-4.0)
[2024-03-07 03:58] VITALS: BP 128/70; PULSE 90; RESP 16; TEMP 36.9; O2SAT 99
== END 2024-03-07 03:58 | disposition home or self-care (01) ==
PROVIDERS: Emergency Provider Emergency Medicine; PCP Internal Medicine
DX: R00.0 Tachycardia, unspecified (principal); I45.4 Nonspecific intraventricular block
CPT/HCPCS: 36415; 71045; 80048; 80076; 84443; 84484; 85025; 93005; 99283; 99284

== ENCOUNTER → 2024-03-07 02:00 | Outpatient (BNV) | payer OTHER, SELFPAY | PROVIDERS: Emergency Provider Emergency Medicine; PCP Internal Medicine; Visit Provider Radiology Neuroradiology | DX: R06.02 Shortness of breath (principal) | CPT/HCPCS: 71045 ==

== ENCOUNTER → 2024-03-18 12:08 | Outpatient (BNVA) | payer OTHER, SELFPAY | PROVIDERS: PCP Internal Medicine; Visit Provider Nurse Practitioner Family ==

== ENCOUNTER → 2024-06-17 15:19 | Outpatient (BNVA) | payer OTHER, SELFPAY | PROVIDERS: PCP Internal Medicine; Visit Provider Nurse Practitioner Family ==

== ENCOUNTER 2024-07-22 11:24 | Day surgery (SDC) | payer OTHER, SELFPAY ==
--- OUTSIDE RECORDS SUMMARY | 2024-06-21 06:52 | XMS_ITS | Encounter Summary ---
Author Organization [facility] Address [address] [place] [phone] Phone Care Team Providers Care Rat Culturist Name Role Phone Unavailable Primary Care Provider Unavailabl e Encounter Details Date Type Department Care Team (Late st Contact Info) Description 07/15/2011 Documentation EM Family Medicine [address] [place] [address] Family Medicine, Physician [address] [place] [address] Social History Tobacco Use Types Packs/Day Years Used Date Smoking Tobacco: Never Assessed Sex and Gender Information Value Date Recorded Sex Assigned at Not on file Legal Sex Male 4:40 PM EDT Gender Identity Not on file Sexual Orientation Not on file documented as of this encounter Plan of Treatment Not on file documented as of this encounter Visit Diagnoses Not on filedocumented in this encounter
--- OUTSIDE RECORDS SUMMARY | 2024-06-21 06:52 | XMS_ITS | Encounter Summary ---
Author Organization [facility] Address [address] [place] [phone] Phone Care Team Providers Care Subassemblies Wirer Name Role Phone Unavailable Primary Care Provider Unavailabl e Encounter Details Date Type Department Care Team (Late st Contact Info) Description 07/15/2011 Documentation EM Family Medicine [address] [place] [address] Family Medicine, Physician [address] [place] [address] Social History Tobacco Use Types [...]
--- OUTSIDE RECORDS SUMMARY | 2024-06-21 06:52 | XMS_ITS | Clinical Summary ---
Author Organization [facility] Address [address] [place] [address] Phone Care Team Providers Care Senior Search Marketing Analyst Name Role Phone Unavailable Primary Care Provider Unavailabl e Immunizations Immunization Administration Dates Next Due DTP 11/23/1988, 6,05/24/1984,1984,1983 Hep B, ped/adol 01/27/1997,09/26/1996,08/11/1995 MMR 08/11/1995,03/26/1985 OPV 11/23/1988, 6,06/23/1984,1984,1983 Td (adult) (Tenivac), 5 Lf t etanus toxoid, PF, adsorbed 04/20/1995 Social History Tobacco Use Types Packs/Day Years Used Date Smoking Tobacco: Never Assessed Sex and Gender Information Value Date Recorded Sex Assigned at Not on file Legal Sex Male 4:40 PM EDT Gender Identity Not on file Sexual Orientation Not on file Plan of Treatment Health Maintenance Due Date Last Done Comments DTaP,Tdap,and Td Vaccines (6 - Tdap) 04/21/1995 04/20/1995, 11/23/1988, 07/24/1985, Additional history exists Varicella Vaccines (1 of 2 - 13+ 2-dose series) 10/25/1996 Influenza Vaccines (#1) 2023 COVID-19 Vaccine ( season) 2023 IPV Vaccines Completed 11/23/1988, 02/1985, 06/23/1984, Additional history exists MMR Vaccines Completed 08/11/1995, 03/26/1985 Hepatitis B Vaccines Completed 01/27/1997, 09/26/1996, 08/11/1995 HIB Vaccines Aged Out No longer eligi ble based on patient's age to complete this topic HPV Vaccines Aged Out No longer eligi ble based on patient's age to complete this topic Hepatitis A Vaccines Aged Out No long er eligible based on patient's age to complete this topic Men B Vaccine Aged Out No longer elig ible based on patient's age to complete this topic Meningococcal Vaccine Aged Out No alan omid eligible based on patient's age to complete this topic Pneumococcal Vaccine Aged Out No long er eligible based on patient's age to complete this topic
--- OUTSIDE RECORDS SUMMARY | 2024-06-21 06:52 | XMS_ITS | Encounter Summary ---
Author Organization [facility] Address [address] [place] [phone] Phone Care Team Providers Care Sound Effects Supervisor Name Role Phone Unavailable Primary Care Provider Unavailabl e Encounter Details Date Type Department Care Team (Late st Contact Info) Description 07/15/2011 Documentation EM Family Medicine [address] [place] [address] Family Medicine, Physician [address] [place] [address] Social History Tobacco Use Types [...]
--- OUTSIDE RECORDS SUMMARY | 2024-06-21 06:52 | XMS_ITS | Encounter Summary ---
Author Organization [facility] Address [address] [place] [phone] Phone Care Team Providers Care Chief Controller Center Name Role Phone Unavailable Primary Care Provider Unavailabl e Encounter Details Date Type Department Care Team (Late st Contact Info) Description 07/15/2011 Documentation EM Family Medicine [address] [place] [address] Family Medicine, Physician [address] [place] [address] Social History Tobacco Use Types [...]
--- OUTSIDE RECORDS SUMMARY | 2024-06-21 06:52 | XMS_ITS | Encounter Summary ---
Author Organization [facility] Address [address] [place] [phone] Phone Care Team Providers Care Salesperson Automobiles Name Role Phone Unavailable Primary Care Provider Unavailabl e Encounter Details Date Type Department Care Team (Late st Contact Info) Description 07/15/2011 Documentation EM Family Medicine [address] [place] [address] Family Medicine, Physician [address] [place] [address] Social History Tobacco Use Types [...]
--- OUTSIDE RECORDS SUMMARY | 2024-06-21 06:52 | XMS_ITS | Encounter Summary ---
Author Organization [facility] Address [address] [place] [phone] Phone Care Team Providers Care Aerospace Medicine Physician Name Role Phone Unavailable Primary Care Provider Unavailabl e Encounter Details Date Type Department Care Team (Late st Contact Info) Description 07/15/2011 Documentation EM Family Medicine [address] [place] [address] Family Medicine, Physician [address] [place] [address] Social History Tobacco Use Types [...]
--- OUTSIDE RECORDS SUMMARY | 2024-06-21 06:52 | XMS_ITS | Encounter Summary ---
Author Organization [facility] Address [address] [place] [phone] Phone Care Team Providers Care Geographical Historian Name Role Phone Unavailable Primary Care Provider Unavailabl e Encounter Details Date Type Department Care Team (Late st Contact Info) Description 07/15/2011 Documentation EM Family Medicine [address] [place] [address] Family Medicine, Physician [address] [place] [address] Social History Tobacco Use Types [...]
--- OUTSIDE RECORDS SUMMARY | 2024-06-21 06:52 | XMS_ITS | Encounter Summary ---
Author Organization [facility] Address [address] [place] [phone] Phone Care Team Providers Care Swimming Pool Cleaner Name Role Phone Unavailable Primary Care Provider Unavailabl e Encounter Details Date Type Department Care Team (Late st Contact Info) Description 07/15/2011 Documentation EM Family Medicine [address] [place] [address] Family Medicine, Physician [address] [place] [address] Social History Tobacco Use Types [...]
--- NOTE | 2024-07-21 12:38 | P.CONAN_ITS ---
Documented by User: Mirtha Randhawa NP 07/21/24 12:42 HPI - Anesthesia Eval Consult details Narrative: 38yo M for Upper Endoscopy with Dilitation PMFSH Active Problems Active Problems: All Active Problems Dysphagia (Acute) COVID-19 (Acute) Annual physical exam (Acute) Rash (Acute) Tinea versicolor (Acute) Esophagitis (Acute) Past Medical History Medical History Hiatal hernia Tinea versicolor Esophagitis Family History Family History Mother No problems noted. Father Heart attack Diabetes Brother Mental health disorder Substance use disorder Family history of problems with anesthesia: No Surgical History Surgical History Hx of esophagogastroduodenoscopy History of dental surgery History of Problems with Anesthesia: No Social History Social History Housing: Apartment Are you a primary child care teacher to a significant other at home: No Do you presently have visiting nurse or other home services: No Alcohol intake: never Patient Tobacco Use Status: Never used Tobacco e-Cigarette/Vaping Use: Never Used Second Hand Smoke Exposure: No Use of substances other than those prescribed or required for medical reasons: No Have you been hit, kicked, punched, or otherwise hurt by someone within the past year? If so, by whom?: No Are you DNR?: No Advance Directives: No Advance Directives Information Provided: Yes Advance Directives on File: No Poor oral hygiene: No service: No Current occupational status: employed Cognitive needs: No Hearing needs: No Vision needs: Yes (Glasses) Meds Allergies Allergy/AdvReac Type Severity Reaction Status Date / Time budesonide Allergy Swelling Verified 06/17/24 15:21 Home Medications ?Medication ?Instructions ?Recorded ?Confirmed ?Last Taken ?Type epinephrine 0.3 mg/0.3 mL IM 06/17/24 Unknown History injection, auto-injector Exam Pertinent Lab Results Pertinent Lab Results: Laboratory Tests 03/07/24 03:03 WBC 8.3 Hgb 15.6 Hct 45.1 Plt Count 196 Sodium 141 Potassium 4.1 Chloride 106 Carbon Dioxide 25 BUN 18 H Creatinine 1.34 Narrative Narrative: EKG 02/2024 as interpreted by ED provider: Normal sinus rhythm, heart rate 83, no ST segment depression or elevation, nonspecific T-wave inversion in lead 3, QTC 451 Assessment and Plan Assessment Anesthesia Assessment: Chart Reviewed Final Anesthetic Review Family History of Problems with Anesthesia: No History of Problems with Anesthesia: No Documented by User: Unique Key MD 07/22/24 13:06 [facility] Past Medical History Medical History Hiatal hernia Tinea versicolor Esophagitis Family History Family History Mother No problems noted. Father Heart attack Diabetes Brother Mental health disorder Substance use disorder Surgical History Surgical History Hx of esophagogastroduodenoscopy History of dental surgery Social History Social History Housing: Apartment Are you a primary child care teacher to a significant other at home: No Do you presently have visiting nurse or other home services: No Alcohol intake: never Patient Tobacco Use Status: Never used Tobacco e-Cigarette/Vaping Use: Never Used Second Hand Smoke Exposure: No Use of substances other than those prescribed or required for medical reasons: No Have you been hit, kicked, punched, or otherwise hurt by someone within the past year? If so, by whom?: No Are you DNR?: No Advance Directives: No Advance Directives Information Provided: Yes Advance Directives on File: No Poor oral hygiene: No service: No Current occupational status: employed Cognitive needs: No Hearing needs: No Vision needs: Yes (Glasses) Meds Allergies Allergy/AdvReac Type Severity Reaction Status Date / Time budesonide Allergy Swelling Verified 06/17/24 15:21 Home Medications ?Medication ?Instructions ?Recorded ?Confirmed ?Last Taken ?Type epinephrine 0.3 mg/0.3 mL IM 06/17/24 Unknown History injection, auto-injector Exam Airway Mallampati Class: II TM Dist: >3cm Neck ROM: Full Heart: rrr Lungs: cta Assessment and Plan Assessment Anesthesia Assessment: Anesthesia Plan Discussed Final Anesthetic Review NPO: Yes ASA Class: II Final Preanesthetic Review: No Changes in Pt Med Stat, Meds/Allgs Chart Reviewed and Consent Obtained/Reviewed Patient Risk: Low Procedure Risk: Intermediate Anesthetic Plan Anesthetic Plan: MAC: Disposition: Standard PACU
[2024-07-22 12:02] VITALS: BMI 32.3
[2024-07-22 12:07] VITALS: BP 108/65; PULSE 61; RESP 16; TEMP 36.7; O2SAT 98
[2024-07-22] MEDS: Lactated Ringers 1,000 ML 100 ML IVCONT (12:14)
--- NOTE | 2024-07-22 12:57 | P.HPSUR_ITS ---
Pre-Procedural Eval Section A - 24 Hr Update-Section A only Date of Service: 07/22/24 The patient is an INPATIENT: No The patient has been examined within 24 hours of the surgical procedure. The History & Physical has been completed within 30 days and I have reviewed it.: No Section B - Complete if H&P > 30 days Chief Complaint: Dysphagia, EOE Relevant Family History (Specify if Yes): No Relevant Social History: None Present Medications: see Short Stay Collaborative assessment Medical History: Significant History (Hiatal hernia Tinea versicolor Esopha gitis) History of Previous Operations: Relevant previous surgery/procedure and date(s) (Hx of esophagogastroduodenoscopy History of dental surgery) Allergies: Allergies Allergy/AdvReac Type Severity Reaction Status Date / Time budesonide Allergy Swelling Verified 06/17/24 15:21 Review of Systems Sugical H&P ROS: Negative: Constitution, Cardiovascular, Respiratory and Gastrointestinal Exam Surgical H&P Exam: Normal: Heart, Normal: Lungs, Normal: Extremities and Normal: Abdomen Plan Diagnosis/Plan: Unchanged I have reviewed the history and physical and performed a pertinent physical examination on my patient. No changes have occurred unless specified. Time Spent With Patient Time: Total time managing care of this patient today ____ minutes.
--- NOTE | 2024-07-22 14:30 | W.PM.OPN ---
Operative Note Operative Note Date of Service: 07/22/24 Narrative: FLEXIBLE TRANSORAL UPPER GASTROINTESTINAL ENDOSCOPY WITH BIOPSIES AND ESOPHAGEAL DILATION WITH GUIDE WIRE Pre-op diagnosis: Dysphagia, FU of EOE Post-op diagnosis: same Endoscopist:? Manan Tran MD Anesthesia:?MAC UPPER ENDOSCOPY Consent: Indications for the procedure and potential complications of bleeding, perforation, reaction to medications and missed diagnosis were discussed with the patient and informed consent was obtained. Instrument: Olympus GIF H 190 mid size upper endoscope Monitoring: Vital signs and clinical assessment, continuous EKG monitoring, Pulse oximetry, Carbon Dioxide monitoring and blood pressure monitoring were done throughout the procedure. Procedure: The patient was placed in the left lateral decubitis position and pre-procedure medications were administered and a bite block was placed. The endoscope was inserted into the mouth and advanced under direct vision to the third part of duodenum. A careful inspection was made as the upper endoscope was withdrawn including a retroflexed examination of the proximal stomach; Findings and interventions are described below. Findings: Larynx: Normal Esophagus: Decreased calibre of esophagus with circular rings and scattered white exudates in the proximal, mid and distal esophagus. GE junction at 40 cms, no Ghosh's. A mid size endoscope advanced through the strictures with minimal resistance. Dilation was performed with a 12 mm (36 F) and a 14 mm (42 F) savory dilator over a guide wire with mild to moderate resistance on passage of each dilator. Biopsies were obtained from proximal, mid and distal esophagus to follow-up on EOE Stomach: Mild gastric erythema. Grade 2 flap valve on retroflexed examination of the cardia. Duodenum: Normal bulb and descending duodenum Intervention: Biopsies and esophageal dilation as noted above Impression and Post Procedure Diagnosis: Endoscopy Findings: ESOPHAGUS: Decreased calibre of esophagus with circular rings and scattered white exudates in the proximal, mid and distal esophagus. A mid size endoscope advanced through the strictures with minimal resistance. Dilation was performed with a 12 mm (36 F) and a 14 mm (42 F) savory dilator over a guide wire with mild to moderate resistance on passage of each dilator. STOMACH: Mild gastritis DUODENUM: Normal Plan: Pt has a FU appointment on 08/19/24 with Citlalli Colvin NP Above findings were reviewed with the patient and relevant handouts were given and the discharge area. Repeat EGD with dilation in 3 months - message sent to the GI assistant professor surgical technology to schedule an appointment. ADDENDUM: Patient is unable to take budesonide as he has significant allergy. BIOPSIES SHOWED: Esophagus, proximal, biopsy: Squamous mucosa with increased intraepithelial eosinophils (up to 22 per high-power field); negative for fungal organisms, intestinal metaplasia and dysplasia
[2024-07-22 14:32] VITALS: BP 101/52; PULSE 67; RESP 12; TEMP 36.1; O2SAT 92
[2024-07-22 14:45] VITALS: BP 107/57; PULSE 64; RESP 12; O2SAT 95
[2024-07-22 15:00] VITALS: BP 122/79; PULSE 58; RESP 12; TEMP 36.1; O2SAT 97
== END 2024-07-22 15:16 | disposition home or self-care (01) ==
PROVIDERS: PCP Internal Medicine; Visit Provider Internal Medicine Gastroenterology
PROC: (CPT 43248; principal; 2024-07-22 13:50)
DX: K20.0 Eosinophilic esophagitis (principal); K29.70 Gastritis, unspecified, without bleeding; K44.9 Diaphragmatic hernia without obstruction or gangrene; K21.9 Gastro-esophageal reflux disease without esophagitis
CPT/HCPCS: 43248; 43239; 88305; 88313; C1769; J2003; J2704

== ENCOUNTER → 2024-07-22 11:24 | Outpatient (BNV) | payer OTHER, SELFPAY | PROVIDERS: PCP Internal Medicine; Visit Provider Internal Medicine Gastroenterology | DX: R13.10 Dysphagia, unspecified (principal); K20.90 Esophagitis, unspecified without bleeding; K29.70 Gastritis, unspecified, without bleeding | CPT/HCPCS: 43249 ==

== ENCOUNTER 2024-08-19 16:21 | Outpatient (AMB) | payer OTHER, SELFPAY ==
--- NOTE | 2024-08-19 16:29 | A.OFFVIS_ITS ---
Vital Signs 08/19/24 16:35 Height 5 ft 9 in Weight 218 lb BMI 32.2 BP 132/80 Blood Pressure Location Rt brachial Position Sitting Pulse 58 Pulse Source Pulse Oximeter Pulse Oximetry (%) 100 Oxygen Delivery Method Room Air Intake Visit Reasons: S/P egd; Dr. Tran Intake Note: ESTABLISHED PATIENT for mgmt of GERD, dysphagia, eosinophilic esophagitis. S/P EGD. Chief Complaint; Pt denies any GI sx but does have some concerns regarding possible adverse reaction to famotidine. Pt stopped the medication and has felt better almost immediately thereafter. Pt still taking Nexium without difficulty. Cardiothoracic Physiotherapist Required: No Accompanied by: Self / Same As Patient Allergies budesonide Allergy (Verified 06/17/24 15:21) Swelling HPI HPI S/P egd; Dr. Tran: Details: LAST VISIT Esophagitis Dysphagia GERD (gastroesophageal reflux disease) Plan Patient will continue Nexium twice a day and famotidine at bedtime. Patient was encouraged to avoid dietary triggers and late night snacking. Try to exercise to lose weight. Patient will be scheduled today for upper endoscopy. Patient denies any issues with anesthesia in the past. No history of sleep apnea. Denies any cardiac or respiratory symptoms. Patient is agreeable to this plan and verbalizes understanding of instructions. He was given the opportunity to ask questions and all questions answered. ENDOSCOPY Findings: Larynx: Normal Esophagus: Decreased calibre of esophagus with circular rings and scattered white exudates in the proximal, mid and distal esophagus. GE junction at 40 cms, no Ghosh's. A mid size endoscope advanced through the strictures with minimal resistance. Dilation was performed with a 12 mm (36 F) and a 14 mm (42 F) savory dilator ov er a guide wire with mild to moderate resistance on passage of each dilator. Biopsies were obtained from proximal, mid and distal esophagus to follow-up on EOE Stomach: Mild gastric erythema. Grade 2 flap valve on retroflexed examination of the cardia. Duodenum: Normal bulb and descending duodenum Intervention: Biopsies and esophageal dilation as noted above Impression and Post Procedure Diagnosis: Endoscopy Findings: ESOPHAGUS: Decreased calibre of esophagus with circular rings and scattered white exudates in the proximal, mid and distal esophagus. A mid size endoscope advanced through the strictures with minimal resistance. Dilation was performed with a 12 mm (36 F) and a 14 mm (42 F) savory dilator over a guide wire with mild to moderate resistance on passage of each dilator. STOMACH: Mild gastritis DUODENUM: Normal Plan: Pt has a FU appointment on 08/19/24 with Citlalli Colvin NP Above findings were reviewed with the patient and relevant handouts were given and the discharge area. Repeat EGD with dilation in 3 months - message sent to the GI surgical physician assistant to schedule an appointment. ADDENDUM: Patient is unable to take budesonide as he has significant allergy. BIOPSIES SHOWED: Esophagus, proximal, biopsy: Squamous mucosa with increased intraepithelial eosinophils (up to 22 per high-power field); negative for fungal organisms, intestinal metaplasia and dysplasia TODAY'S VISIT Patient is here today for follow-up and to discuss upper endoscopy results. Eosinophilic esophagitis found up to 22 her high-power field count of eosinophils. Patient reports that he has a next appointment with it his velocity shooter in November. He is avoiding dietary triggers and avoiding the food that he was found to be allergic to. Unable to take budesonide as allergic reaction. Message sent to Dr. Tran starting patient on Dupixent. We will need to run by his insurance and patient will need to make an appointment with a nurse to learn how to inject. Patient reports that he tried to take famotidine at bedtime and states that his symptoms were getting worse. He stopped it about 2 weeks ago and his symptoms have subsided. He is currently taking Nexium twice a day and for the most part he is doing well. Denies any dyspepsia, dysphagia or odynophagia. Dilation of esophagus was performed at last endoscopy and he will be returning for dilation in 3 months. Patient denies any other GI concerning symptoms. [facility] Medical History (Updated 08/19/24 @ 20:09 by Estrella Colvin, GARBAGE PICK UP WORKER-) GERD (gastroesophageal reflux disease) Eosinophilic esophagitis Hiatal hernia Tinea versicolor Esophagitis Surgical History Hx of esophagogastroduodenoscopy History of dental surgery Family History Mother No problems noted. Father Heart attack Diabetes Brother Mental health disorder Substance use disorder Social History Housing: Apartment Are you a primary rn progressive care to a significant other at home: No Do you presently have visiting nurse or other home services: No Alcohol intake: never Patient Tobacco Use Status: Never used Tobacco e-Cigarette/Vaping Use: Never Used Second Hand Smoke Exposure: No service: No Current occupational status: employed Cognitive needs: No Hearing needs: No Vision needs: Yes (Glasses) Review of Systems Const Denies weight gain and Denies weight loss ENT Reports no additional complaints, Reports dysphagia (Occasional) and Denies odynophagia Card Reports no additional complaints Resp Reports no additional complaints GI Denies abdominal pain, Denies belching, Denies melena, Denies bloating, Denies change in bowel habits, Reports dysphagia (Occasional), Denies excessive flatus, Denies dyspepsia, Denies heartburn, Denies diarrhea, Denies loose stools, Denies nausea, Denies odynophagia and Denies vomiting Reports no additional complaints Musc Reports no additional complaints Neuro Reports no additional complaints Psych Reports no additional complaints Endo Reports no additional complaints Physical Exam Vital Signs: Last Vital Signs Pulse 58 08/19/24 16:35 BP 132/80 08/19/24 16:35 Pulse Ox 100 08/19/24 16:35 Oxygen Delivery Method Room Air 08/19/24 16:35 BMI result Body Mass Index 32.2 Const General: healthy appearing and no acute distress Nutritional Appearance: obese Orientation/consciousness: patient oriented x3 Resp Effort & Inspection: normal respiratory effort, able to speak in complete sentences, no tracheal deviation and symmetric chest movement Auscultation: clear to auscultation bilaterally Cardio Rate: regular rate GI Inspection: Yes normal to inspection, No distended and Yes obesity Palpation (GI): Soft to palpation, not firm, nontender and No hepatosplenomegaly present Auscultation: normal bowel sounds General: Yes no CVA tenderness Back/Spine/Pelvis Back: no CVA tenderness Skin General skin exam: elasticity normal, turgor normal and dry skin Neuro General: patient oriented x3 Psych Appearance: grossly normal Mental Status: mental status grossly normal Assessment & Plan Assessment & Plan (1) Dysphagia: Code(s): R13.10 - Dysphagia, unspecified Category: Medical Qualifiers: Dysphagia type: pharyngoesophageal phase Qualified Code(s): R13.14 - Dysphagia, pharyngoesophageal phase (2) Esophagitis: Code(s): K20.90 - Esophagitis, unspecified without bleeding Category: Medical (3) Eosinophilic esophagitis: Code(s): K20.0 - Eosinophilic esophagitis Category: Medical (4) GERD (gastroesophageal reflux disease): Code(s): K21.9 - Gastro-esophageal reflux disease without esophagitis Category: Medical Qualifiers: Esophagitis presence: with esophagitis Esophagitis bleeding: without hemorrhage Qualified Code(s): K21.00 - Gastro-esophageal reflux disease with esophagitis, without bleeding Plan Patient will continue Nexium for now. Will wait for Dr. Tran to respond to message about Dupixent. I have discussed this with patient today possibility of him having starting Dupixent every 2 weeks. He is agreeable to this plan. We will make an appointment with a nurse otherwise patient will be seen in 2-3 months. He is having an appointment with shank paperer in November. Patient was encouraged to call the office sooner if he will have worsening symptoms. For now he is not complaining any dyspepsia, dysphagia or odynophagia. Patient was given the opportunity to ask questions and all questions answered. Thank you for allowing me to participate in his care Coding Level of Care Code Est Pt Level 4 (36630) Complex EM visit Add On G2211 Diagnoses Pharyngoesophageal dysphagia R13.14 Dysphagia type: pharyngoesophageal phase Esophagitis K20.90 Eosinophilic esophagitis K20.0 Gastroesophageal reflux disease with esophagitis without hemorrhage K21.00 Esophagitis presence: with esophagitis Esophagitis bleeding: without hemorrhage Time Spent (min) 40 Comment 25 minutes spent with patient and additional 15 minutes spent reviewing his records
[2024-08-19 16:35] VITALS: BP 132/80; PULSE 58; O2SAT 100; BMI 32.2
== END 2024-08-19 16:48 | disposition home or self-care (01) ==
LOC: HO.HGI 16:21
PROVIDERS: PCP Internal Medicine; Visit Provider Nurse Practitioner Family
DX: R13.14 Dysphagia, pharyngoesophageal phase (principal); K20.90 Esophagitis, unspecified without bleeding; K20.0 Eosinophilic esophagitis
CPT/HCPCS: 99214; G2211

== ENCOUNTER 2024-09-08 15:25 | Outpatient (AMB) | payer OTHER, SELFPAY ==
--- NOTE | 2024-09-08 15:29 | MHC.PC.OV ---
Vital Signs 09/08/24 15:32 Height 5 ft 9 in Weight 218 lb 4 oz BMI 32.2 BP 120/80 Blood Pressure Location Lt brachial Position Sitting Pulse 48 L Pulse Source Pulse Oximeter Temp 97.1 F Temp Source Temporal Artery Scan Pulse Oximetry (%) 97 Oxygen Delivery Method Room Air Intake Visit Reasons: Annual Exam Intake Note: Patient is here today for a physical. Sheet Metal Layout Mechanic Required: No Weld Inspector: Not Required per policy Accompanied by: Self / Same As Patient Allergies budesonide Allergy (Verified 09/08/24 15:53) Swelling Medication List - Last Reconciled 09/08/24 by Francesco Vasquez MD epinephrine IM esomeprazole magnesium (Nexium) 40 mg PO BID montelukast 10 mg PO BEDTIME Tobacco use date assessed: 09/08/24 Dental Screening Dental Screen Date: 09/08/24 Did you have a dental visit in the last 12 months?: Yes Did you have a dental problem in the last 6 months where you did not have access to dental care?: No Was dental information given to patient?: Patient has dentist [facility] Medical History GERD (gastroesophageal reflux disease) Eosinophilic esophagitis Hiatal hernia Tinea versicolor Esophagitis Surgical History Hx of esophagogastroduodenoscopy History of dental surgery Family History Mother No problems noted. Father Heart attack Diabetes Brother Mental health disorder Substance use disorder Social History Housing: Apartment Are you a primary vp care management to a significant other at home: No Do you presently have visiting nurse or other home services: No Alcohol intake: never Patient Tobacco Use Status: Never used Tobacco e-Cigarette/Vaping Use: Never Used Second Hand Smoke Exposure: No service: No Current occupational status: employed Cognitive needs: No Hearing needs: No Vision needs: Yes (Glasses) Questionnaire PHQ-9 Over the last 2 weeks, how often have you been bothered by any of the following problems? 1. Little interest or pleasure in doing things: not at all 2. Feeling down, depressed, or hopeless: not at all 3. Trouble falling or staying asleep, or sleeping too much: not at all 4. Feeling tired or having little energy: not at all 5. Poor appetite or overeating: not at all 6. Feeling bad about yourself - or that you are a failure or have let yourself or your family down: not at all 7. Trouble concentrating on things, such as reading the newspaper or watching television: not at all 8. Moving or speaking so slowly that other people could have noticed. Or the opposite - being so fidgety or restless that you have been moving around a lot more than usual: not at all 9. Thoughts that you would be better off or of hurting yourself in some way: not at all Total score: 0 Depression Screening Interpretation: Negative Depression Screening Done: Yes Source: Developed by Drs. Kaleb Breen, Thais Kirk, Gregor Omalley and colleagues, with an educational geneva from [employer]. Thrive Questionnaire Date Thrive assessed: 09/08/24 I am a: Patient What is your living situation today?: I have a steady place to live Within the past 12 months, did the food you bought not last and you didn't have the money to get more?: Never true Within the past 12 months, did you worry whether your food would run out before you got money to buy more?: Never true Do you have trouble paying for medicines?: No Do you have trouble getting transportation to medical appointments?: No Do you have trouble paying your heating and electricity bill?: No Do you have trouble taking care of your child, family member or friend?: No Do you have trouble with day-to-day activities such as bathing, preparing meals, shopping, managing finances, etc.?: No Are you currently unemployed and looking for a job?: No Are you interested in more education?: No Please select the resources that you would like help with: None Currently or been in a relationship where the following occur: No concerns reported THRIVE Score: 0 AUDIT C Alcohol Use Questionnaire (AUDIT-C) 1. How often do you have a drink containing alcohol?: Never Total Score: 0 JENNIFER-7 AMB Questionnaire JENNIFER-7 Date JENNIFER - 7 assessed: 09/08/24 Feeling nervous, anxious, or on edge: 0 = Not at all Not being able to stop or control worryin = Not at all Worrying too much about different things: 0 = Not at all Trouble relaxin = Not at all Being so restless that it is hard to sit still: 0 = Not at all Becoming easily annoyed or irritable: 0 = Not at all Feeling afraid as if something awful might happen: 0 = Not at all Total JENNIFER-7 score (0-4 normal; 5-9 mild; 10-14 moderate; 15-21 severe): 0 Source: Developed by Drs. Kaleb Breen, Thais Kirk, Gregor Omalley and colleagues, with an educational geneva from [employer]. Physical exam (Primary Care) Vital Signs: Last Vital Signs Temp 97.1 F 09/08/24 15:32 Pulse 48 L 09/08/24 15:32 BP 120/80 09/08/24 15:32 Pulse Ox 97 09/08/24 15:32 Oxygen Delivery Method Room Air 09/08/24 15:32 Care Plan Goal for BP management: Blood pressure is in range. BMI result Body Mass Index 32.2 BMI Assessment/Plan discussion: High (1 lb per week weight loss suggested.) BMI High, discussed plan: lifestyle, weight reduction and dietary Tobacco/Smoking Status: Tobacco use Status Tobacco use date assessed 09/08/24 09/08/24 15:38 Patient Tobacco Use Status Never used Tobacco 09/08/24 15:30 e-Cigarette/Vaping Use Never Used 09/08/24 15:30 PHQ-9: PHQ-9 Score PHQ-9: Total score 0 09/08/24 15:38 Depression Screening Interpretation: Negative Thrive Assessment: Date of Thrive Assessment Date Thrive assessed 09/08/24 09/08/24 15:38 Currently or been in a relationship where the following occur: No concerns reported Coding Level of Care Code Est Pt Prev Care 40-64y(11410) Diagnoses Annual physical exam Z00.00 Assessment & Plan Assessment & Plan (1) Annual physical exam: Code(s): Z00.00 - Encounter for general adult medical examination without abnormal findings Category: Medical Plan: Blood work reviewed. Continue PPI. Plan History of Present Illness - The patient is a 38-year-old male presenting for a physical examination. - Esophageal stricture: The patient has undergone multiple endoscopies with esophageal dilatation and reports improvement with new medication, though he experiences mild nausea in the morning, which resolves with food intake. - Rash: The patient was referred to a brass pourer and reports significant improvement with the use of two topical creams, with the rash mostly resolved. - Preventative care: Blood work conducted in February was normal. Social History - Employment: Works from home, primarily on the phone. - Substance use: Denies alcohol and tobacco use. Review of Systems - Gastrointestinal: Reports mild nausea in the morning, resolves with food intake. - Dermatological: Reports rash, mostly resolved with treatment. - General: Denies issues with sleep or driving. Physical Exam General: Cooperative and healthy appearing Nutritional Appearance: Well nourished Orientation/consciousness: Patient oriented x3 Limitations: No limitations Head: Normal to inspection General: Appearance normal, both eyes and all related structures Neck: Normal visual inspection Chest: Normal palpation of entire chest wall Respiratory: No pains reported, everything is good. ormal respiratory effort Neurology: Patient oriented x3 Results - Labs: Blood work in February was normal. Plan 1. Esophageal Stricture - Continue current medication regimen as it has shown improvement. - Monitor for any worsening symptoms or side effects. 2. Rash - Continue use of prescribed topical creams as directed by the brass pourer. - Follow up with brass pourer if symptoms persist or worsen. Discussion Notes During the visit, we discussed the patient's current medication regimen for esophageal stricture, which has shown improvement, and the importance of monitoring for any side effects or worsening symptoms. We also reviewed the treatment plan for the rash, emphasizing the continued use of topical creams and the need for follow-up with a brass pourer if necessary. Patient Instructions - Continue taking your current medication for esophageal stricture and monitor for any side effects. - Use the prescribed creams for your rash as directed and follow up with your brass pourer if needed.
[2024-09-08 15:32] VITALS: BP 120/80; PULSE 48; TEMP 36.2; O2SAT 97; BMI 32.2
--- OUTSIDE RECORDS SUMMARY | 2024-09-08 16:02 | XMS_ITS | Encounter Summary ---
Author Organization [facility] Address [address] [place] [id number] Phone Care Team Providers Care Cottrell Operator Name Role Phone Unavailable Primary Care Provider Unavailabl e Encounter Details Date Type Department Care Team (Late st Contact Info) Description 07/15/2011 Documentation [facility] [place] [place] Family Medicine [address] [place] [address] Family Medicine, Physician [address] [place] [address] Social History Tobacco Use Types [...]
== END 2024-09-08 15:51 | disposition home or self-care (01) ==
LOC: HO.HMCH 15:26
PROVIDERS: PCP Internal Medicine; Visit Provider Internal Medicine
DX: Z00.00 Encounter for general adult medical examination without abnormal findings (principal)

== ENCOUNTER 2024-10-21 07:15 | Day surgery (SDC) | payer OTHER, SELFPAY ==
--- OUTSIDE RECORDS SUMMARY | 2024-09-26 15:07 | XMS_ITS | Encounter Summary ---
Author Organization [facility] Address [address] [place] [phone] Phone Care Team Providers Care Bartender Name Role Phone Unavailable Primary Care Provider Unavailabl e Encounter Details Date Type Department Care Team (Late st Contact Info) Description 07/15/2011 Documentation [facility] Family Medicine [address] [place] [address] Family Medicine, Physician [address] [place] [address] Social History Tobacco Use Types [...]
[2024-10-19 08:09] VITALS: BMI 32.2
--- NOTE | 2024-10-20 11:44 | HO.ANESPROP2 ---
HPI - Anesthesia Eval Consult details Narrative: 38yo M for Upper Endoscopy with Balloon Dilitation s/p same 06/2024 with [facility] Active Problems Active Problems: All Active Problems GERD (gastroesophageal reflux disease) (Acute) Eosinophilic esophagitis (Acute) Dysphagia (Acute) COVID-19 (Acute) Annual physical exam (Acute) Rash (Acute) Tinea versicolor (Acute) Esophagitis (Acute) Past Medical History Medical History GERD (gastroesophageal reflux disease) Eosinophilic esophagitis Hiatal hernia Tinea versicolor Esophagitis Family History Family History Mother No problems noted. Father Heart attack Diabetes Brother Mental health disorder Substance use disorder Family history of problems with anesthesia: No Surgical History Surgical History Hx of esophagogastroduodenoscopy History of dental surgery History of Problems with Anesthesia: No Social History Social History Housing: Apartment Are you a primary child care attendant to a significant other at home: No Do you presently have visiting nurse or other home services: No Alcohol intake: never Patient Tobacco Use Status: Never used Tobacco e-Cigarette/Vaping Use: Never Used Second Hand Smoke Exposure: No Use of substances other than those prescribed or required for medical reasons: No Advance Directives: No Advance Directives Information Provided: Yes service: No Current occupational status: employed Cognitive needs: No Hearing needs: No Vision needs: Yes (Glasses) Meds Allergies Allergy/AdvReac Type Severity Reaction Status Date / Time famotidine Allergy Mild Swelling Verified 10/21/24 07:28 budesonide Allergy Swelling Verified 09/08/24 15:53 Home Medications ?Medication ?Instructions ?Recorded ?Confirmed ?Last Taken ?Type epinephrine 0.3 mg/0.3 mL IM 06/17/24 09/08/24 10/19/24 08:00 History injection, auto-injector Exam Height,Weight and Vital Signs: Height 5 ft 9 in Weight 98.883 kg Assessment and Plan Assessment Anesthesia Assessment: Chart Reviewed Final Anesthetic Review Family History of Problems with Anesthesia: No History of Problems with Anesthesia: No
--- NOTE | 2024-10-21 07:25 | MHC.SHP ---
Pre-Procedural Eval Section A - 24 Hr Update-Section A only Date of Service: 10/21/24 The patient is an INPATIENT: No The patient has been examined within 24 hours of the surgical procedure. The History & Physical has been completed within 30 days and I have reviewed it.: No Section B - Complete if H&P > 30 days Chief Complaint: Dysphagia, EOE Relevant Family History (Specify if Yes): No Relevant Social History: None Present Medications: see Short Stay Collaborative assessment Medical History: Significant History (GERD (gastroesophageal reflux disease) Eosinophilic esophagitis Hiatal hernia Tinea versicolor) History of Previous Operations: Relevant previous surgery/procedure and date(s) (Hx of EGD, hx of dental surgery) Allergies: Allergies Allergy/AdvReac Type Severity Reaction Status Date / Time budesonide Allergy Swelling Verified 09/08/24 15:53 Review of Systems Sugical H&P ROS: Negative: Constitution, Cardiovascular, Respiratory and Gastrointestinal Exam Surgical H&P Exam: Normal: Heart, Normal: Lungs, Normal: Extremities and Normal: Abdomen Plan Diagnosis/Plan: Unchanged I have reviewed the history and physical and performed a pertinent physical examination on my patient. No changes have occurred unless specified. Time Spent With Patient Time: Total time managing care of this patient today ____ minutes.
[2024-10-21 07:30] VITALS: BMI 32.3
[2024-10-21 07:39] VITALS: BP 112/64; PULSE 55; RESP 16; TEMP 36.8; O2SAT 96
[2024-10-21] MEDS: Lactated Ringers 1,000 ML 100 ML IVCONT (07:40)
--- NOTE | 2024-10-21 08:56 | W.PM.OPN ---
Operative Note Operative Note Date of Service: 10/21/24 Narrative: FLEXIBLE TRANSORAL UPPER GASTROINTESTINAL ENDOSCOPY WITH BIOPSIES AND ESOPHAGEAL DILATION WITH SAVARY DILATOR OVER GUIDEWIRE Pre-op diagnosis: Dysphagia, esophgeal strictures, FU of EOE Post-op diagnosis: same Endoscopist:Heidi Tran MD Anesthesia:?MAC UPPER ENDOSCOPY Consent: Indications for the procedure and potential complications of bleeding, perforation, reaction to medications and missed diagnosis were discussed with the patient and informed consent was obtained. Instrument: Olympus GIF H 190 mid size upper endoscope Monitoring: Vital signs and clinical assessment, continuous EKG monitoring, Pulse oximetry, Carbon Dioxide monitoring and blood pressure monitoring were done throughout the procedure. Procedure: The patient was placed in the left lateral decubitis position and pre-procedure medications were administered and a bite block was placed. The endoscope was inserted into the mouth and advanced under direct vision to the third part of duodenum. A careful inspection was made as the upper endoscope was withdrawn including a retroflexed examination of the proximal stomach; Findings and interventions are described below. Findings: Larynx: Normal Esophagus: Decreased calibre of esophagus with circular rings and in the proximal, mid and distal esophagus. GE junction at 40 cms, no Ghosh's. A mid size endoscope advanced through the strictures without resistance. Dilation was performed with a 14 mm (42 F) and a 15 mm (45 F) savory dilator over a guide wire with mild to moderate resistance on passage of each dilator. Biopsies were obtained from proximal, esophagus to follow-up on EOE Stomach: Mild gastric erythema. Grade 2 flap valve on retroflexed examination of the cardia. Duodenum: not examined Intervention: Biopsies and esophageal dilation as noted above Impression and Post Procedure Diagnosis: Endoscopy Findings: ESOPHAGUS: Decreased calibre of esophagus with circular rings in the proximal, mid and distal esophagus. A mid size endoscope advanced through the strictures without resistance. Dilation was performed with a 14 mm (42 F) and a 15 mm (45 F) savory dilator over a guide wire with mild to moderate resistance on passage of each dilator. STOMACH: Mild gastritis DUODENUM: Not examined Plan: Pt has a FU appointment on 11/15/24 with Citlalli Colvin NP Above findings were reviewed with the patient. Repeat EGD with dilation in 3 - 4 months - message sent to the GI instructor adjunct surgical technician to schedule an appointment.
[2024-10-21 09:02] VITALS: BP 104/59; PULSE 62; RESP 16; TEMP 36.1; O2SAT 94
[2024-10-21 09:15] VITALS: BP 121/76; PULSE 65; RESP 16; O2SAT 94
[2024-10-21 09:30] VITALS: BP 119/82; PULSE 60; RESP 16; O2SAT 97
--- NOTE | 2024-10-21 10:24 | HO.POSTANES ---
Post Anesthesia Evaluation Post Anesthesia Evaluation Date of Service: 10/21/24 Vital Signs: Vital Signs Temp Pulse Resp BP Pulse Ox O2 Del Method 10/21/24 09:30 60 16 119/82 97 Room Air 10/21/24 09:15 65 16 121/76 94 Room Air 10/21/24 09:02 97 F 62 16 104/59 L 94 Room Air 10/21/24 07:39 98.3 F 55 16 112/64 96 Room Air Anesthesia: Monitored Mental Status: Awake Pain Control: Satisfactory Nausea/Vomiting: None Hydration: Adequate Anesthesia-Related Issues: No Anes. Related Issues
== END 2024-10-21 10:40 | disposition home or self-care (01) ==
PROVIDERS: PCP Internal Medicine; Visit Provider Internal Medicine Gastroenterology
PROC: (CPT 43248; principal; 2024-10-21 08:30)
DX: R13.14 Dysphagia, pharyngoesophageal phase (principal); K22.2 Esophageal obstruction; K20.0 Eosinophilic esophagitis; K29.60 Other gastritis without bleeding; K21.00 Gastro-esophageal reflux disease with esophagitis, without bleeding; Z79.899 Other long term (current) drug therapy
CPT/HCPCS: 43248; 43239; 88305; C1769; J2003; J2704

== ENCOUNTER → 2024-10-21 07:15 | Outpatient (BNV) | payer OTHER, SELFPAY | PROVIDERS: PCP Internal Medicine; Visit Provider Internal Medicine Gastroenterology | DX: K22.0 Achalasia of cardia (principal); K29.70 Gastritis, unspecified, without bleeding; R13.10 Dysphagia, unspecified | CPT/HCPCS: 43239; 43248 ==

== ENCOUNTER 2024-11-15 16:10 | Outpatient (AMB) | payer OTHER, SELFPAY ==
[2024-11-15 16:12] VITALS: BP 128/76; PULSE 66; O2SAT 98; BMI 32.2
--- NOTE | 2024-11-15 16:12 | MHC.OFFVIS ---
Vital Signs 11/15/24 16:12 Height 5 ft 9 in Weight 218 lb BMI 32.2 BP 128/76 Blood Pressure Location Rt brachial Position Sitting Pulse 66 Pulse Source Pulse Oximeter Pulse Oximetry (%) 98 Oxygen Delivery Method Room Air Intake Visit Reasons: 2 mo f/u Intake Note: ESTABLISHED PATIENT for mgmt of GERD, dysphagia, eosinophilic esophagitis. S/P EGD. Chief Complaint; Pt denies any GI changes or new sx since last visit. Pt states that he has a few general knowledge questions but does not have any major concerns to report. Data Warehouse Developer Required: No Accompanied by: Self / Same As Patient Allergies famotidine Allergy (Mild, Verified 10/21/24 07:28) Swelling budesonide Allergy (Verified 09/08/24 15:53) Swelling HPI HPI 2 mo f/u: Details: LAST VISIT: Dysphagia Esophagitis Eosinophilic esophagitis GERD (gastroesophageal reflux disease) Plan Patient will continue Nexium for now. Will wait for Dr. Tran to respond to message about Dupixent. I have discussed this with patient today possibility of him having starting Dupixent every 2 weeks. He is agreeable to this plan. We will make an appointment with a nurse otherwise patient will be seen in 2-3 months. He is having an appointment with manager maritime in November. Patient was encouraged to call the office sooner if he will have worsening symptoms. For now he is not complaining any dyspepsia, dysphagia or odynophagia. Patient was given the opportunity to ask questions and all questions answered. UPPER ENDOSCOPY Findings: Larynx: Normal Esophagus: Decreased calibre of esophagus with circular rings and in the proximal, mid and distal esophagus. GE junction at 40 cms, no Ghosh's. A mid size endoscope advanced through the strictures without resistance. Dilation was performed with a 14 mm (42 F) and a 15 mm (45 F) savory dilator over a guide wire with mild to moderate resistance on passage of each dilator. Biopsies were obtained from proximal, esophagus to follow-up on EOE Stomach: Mild gastric erythema. Grade 2 flap valve on retroflexed examination of the cardia. Duodenum: not examined Intervention: Biopsies and esophageal dilation as noted above Impression and Post Procedure Diagnosis: Endoscopy Findings: ESOPHAGUS: Decreased calibre of esophagus with circular rings in the proximal, mid and distal esophagus. A mid size endoscope advanced through the strictures without resistance. Dilation was performed with a 14 mm (42 F) and a 15 mm (45 F) savory dilator over a guide wire with mild to moderate resistance on passage of each dilator. STOMACH: Mild gastritis DUODENUM: Not examined Plan: Above findings were reviewed with the patient. Repeat EGD with dilation in 3 - 4 months - message sent to the GI outpatient scheduler to schedule an appointment. PATHOLOGY RESULTS: Diagnosis Esophagus, proximal, biopsy: Eosinophilic esophagitis (maximum eosinophil count 41 per high powered field). TODAY'S VISIT: Patient is here today for follow-up. Patient reports that he has seen manager maritime in the past. Has appointment with him again. Upper endoscopy discussed with patient. He is willing to agree to Dupixent injections. Will try to organized this with infusion center to avoid any post injection reaction to this medication. Patient still continues to have occasional swallowing difficulties depending on what he is eating. Patient is trying to eat smaller bites and more often. He is taking Singulair and feels like it is helping a little bed. Patient denies any other GI concerning symptoms. [facility] Medical History GERD (gastroesophageal reflux disease) Eosinophilic esophagitis Hiatal hernia Tinea versicolor Esophagitis Surgical History (Updated 11/15/24 @ 16:19 by JERROD Garcia) Hx of esophagogastroduodenoscopy History of dental surgery Family History Mother No problems noted. Father Heart attack Diabetes Brother Mental health disorder Substance use disorder Social History Housing: Apartment Are you a primary career education teacher to a significant other at home: No Do you presently have visiting nurse or other home services: No Alcohol intake: never Patient Tobacco Use Status: Never used Tobacco e-Cigarette/Vaping Use: Never Used Second Hand Smoke Exposure: No service: No Current occupational status: employed Cognitive needs: No Hearing needs: No Vision needs: Yes (Glasses) Review of Systems Const Denies weight gain and Denies weight loss ENT Reports no additional complaints, Reports dysphagia (Occasional) and Denies odynophagia Card Reports no additional complaints Resp Reports no additional complaints GI Denies abdominal pain, Denies belching, Denies melena, Denies bloating, Denies change in bowel habits, Reports dysphagia (Occasional), Denies excessive flatus, Denies dyspepsia, Denies heartburn, Denies diarrhea, Denies loose stools, Denies nausea, Denies odynophagia and Denies vomiting Reports no additional complaints Musc Reports no additional complaints Neuro Reports no additional complaints Psych Reports no additional complaints Endo Reports no additional complaints Physical Exam Vital Signs: Last Vital Signs Pulse 66 11/15/24 16:12 BP 128/76 11/15/24 16:12 Pulse Ox 98 11/15/24 16:12 Oxygen Delivery Method Room Air 11/15/24 16:12 BMI result Body Mass Index 32.2 Const General: healthy appearing and no acute distress Nutritional Appearance: obese Orientation/consciousness: patient oriented x3 Resp Effort & Inspection: normal respiratory effort, able to speak in complete sentences, no tracheal deviation and symmetric chest movement Auscultation: clear to auscultation bilaterally Cardio Rate: regular rate GI Inspection: Yes normal to inspection, No distended and Yes obesity Palpation (GI): Soft to palpation, not firm, nontender and No hepatosplenomegaly present Auscultation: normal bowel sounds General: Yes no CVA tenderness Back/Spine/Pelvis Back: no CVA tenderness Skin General skin exam: elasticity normal, turgor normal and dry skin Neuro General: patient oriented x3 Psych Appearance: grossly normal Mental Status: mental status grossly normal Assessment & Plan Assessment & Plan (1) Dysphagia: Code(s): R13.10 - Dysphagia, unspecified Category: Medical Qualifiers: Dysphagia type: pharyngoesophageal phase Qualified Code(s): R13.14 - Dysphagia, pharyngoesophageal phase (2) Eosinophilic esophagitis: Code(s): K20.0 - Eosinophilic esophagitis Category: Medical (3) Esophagitis: Code(s): K20.90 - Esophagitis, unspecified without bleeding Category: Medical (4) GERD (gastroesophageal reflux disease): Code(s): K21.9 - Gastro-esophageal reflux disease without esophagitis Category: Medical Qualifiers: Esophagitis presence: with esophagitis Esophagitis bleeding: without hemorrhage Qualified Code(s): K21.00 - Gastro-esophageal reflux disease with esophagitis, without bleeding Plan Will schedule patient for another endoscopy for possible dilation for February. In the meantime please work on getting patient set up for Dupixent injections. Medications sent to pharmacy. Patient will call our office if he will have any GI concerning symptoms. He can continue taking Nexium and Singulair as prescribed. Patient is agreeable to current plan of care and verbalizes understanding of instructions. He was given the opportunity to ask questions and all questions answered. Thank you for allowing me to participate in his care Orders: Referrals GI Procedure Notification Z12.11 - Encounter for screening for malignant neoplasm of colon Medications: New dupilumab 300 mg (2 mL) subcut Q2W 4 mL 3RF dupilumab 300 mg (2 mL) subcut QWEEK 4 mL 3RF Coding Level of Care Code Est Pt Level 4 (17980) Complex EM visit Add On G2211 Diagnoses Pharyngoesophageal dysphagia R13.14 Dysphagia type: pharyngoesophageal phase Eosinophilic esophagitis K20.0 Esophagitis K20.90 Gastroesophageal reflux disease with esophagitis without hemorrhage K21.00 Esophagitis presence: with esophagitis Esophagitis bleeding: without hemorrhage Time Spent (min) 35 Comment 25 minutes spent with patient and additional 10 minutes spent reviewing his records
--- OUTSIDE RECORDS SUMMARY | 2024-11-15 18:37 | XMS_ITS | Encounter Summary ---
Author Organization [facility] Address [address] [place] [address] Phone Care Team Providers Care Mental Health Counselor Name Role Phone Unavailable Primary Care Provider Unavailabl e Encounter Details Date Type Department Care Team (Late st Contact Info) Description 07/15/2011 Documentation EM Family Medicine [address] [place] [address] Family Medicine, Physician [address] [place] [address] Social History Tobacco Use Types [...]
--- OUTSIDE RECORDS SUMMARY | 2024-11-15 18:37 | XMS_ITS | Encounter Summary ---
Author Organization [facility] Address [address] [place] [address] Phone Care Team Providers Care Filenet Developer Name Role Phone Unavailable Primary Care Provider Unavailabl e Encounter Details Date Type Department Care Team (Late st Contact Info) Description 07/15/2011 Documentation EM Family Medicine [address] [place] [address] Family Medicine, Physician [address] [place] [address] Social History Tobacco Use Types [...]
--- OUTSIDE RECORDS SUMMARY | 2024-11-15 18:37 | XMS_ITS | Encounter Summary ---
Author Organization [facility] Address [address] [place] [address] Phone Care Team Providers Care Service Center Representative Name Role Phone Unavailable Primary Care Provider Unavailabl e Encounter Details Date Type Department Care Team (Late st Contact Info) Description 07/15/2011 Documentation EM Family Medicine [address] [place] [address] Family Medicine, Physician [address] [place] [address] Social History Tobacco Use Types [...]
--- OUTSIDE RECORDS SUMMARY | 2024-11-15 18:37 | XMS_ITS | Encounter Summary ---
Author Organization [facility] Address [address] [place] [address] Phone Care Team Providers Care Business Leader Name Role Phone Unavailable Primary Care Provider Unavailabl e Encounter Details Date Type Department Care Team (Late st Contact Info) Description 07/15/2011 Documentation EM Family Medicine [address] [place] [address] Family Medicine, Physician [address] [place] [address] Social History Tobacco Use Types [...]
--- OUTSIDE RECORDS SUMMARY | 2024-11-15 18:37 | XMS_ITS | Encounter Summary ---
Author Organization [facility] Address [address] [place] [address] Phone Care Team Providers Care Oncology Account Specialist Name Role Phone Unavailable Primary Care Provider Unavailabl e Encounter Details Date Type Department Care Team (Late st Contact Info) Description 07/15/2011 Documentation EM Family Medicine [address] [place] [address] Family Medicine, Physician [address] [place] [address] Social History Tobacco Use Types [...]
--- OUTSIDE RECORDS SUMMARY | 2024-11-15 18:37 | XMS_ITS | Encounter Summary ---
Author Organization [facility] Address [address] [place] [address] Phone Care Team Providers Care Fluorescent Lamp Replacer Name Role Phone Unavailable Primary Care Provider Unavailabl e Encounter Details Date Type Department Care Team (Late st Contact Info) Description 07/15/2011 Documentation EM Family Medicine [address] [place] [address] Family Medicine, Physician [address] [place] [address] Social History Tobacco Use Types [...]
--- OUTSIDE RECORDS SUMMARY | 2024-11-15 18:37 | XMS_ITS | Encounter Summary ---
Author Organization [facility] Address [address] [place] [address] Phone Care Team Providers Care Slot Machine Repairer Name Role Phone Unavailable Primary Care Provider Unavailabl e Encounter Details Date Type Department Care Team (Late st Contact Info) Description 07/15/2011 Documentation EM Family Medicine [address] [place] [address] Family Medicine, Physician [address] [place] [address] Social History Tobacco Use Types [...]
--- OUTSIDE RECORDS SUMMARY | 2024-11-15 18:37 | XMS_ITS | Encounter Summary ---
Author Organization [facility] Address [address] [place] [address] Phone Care Team Providers Care Welding Instructor Name Role Phone Unavailable Primary Care Provider Unavailabl e Encounter Details Date Type Department Care Team (Late st Contact Info) Description 07/15/2011 Documentation EM Family Medicine [address] [place] [address] Family Medicine, Physician [address] [place] [address] Social History Tobacco Use Types [...]
--- OUTSIDE RECORDS SUMMARY | 2024-11-15 18:37 | XMS_ITS | Clinical Summary ---
Author Organization [facility] Address [address] [place] [address] Phone Care Team Providers Care Cytopathology Technologist Name Role Phone Unavailable Primary Care Provider [...] of 2 - 13+ 2-dose series) 10/25/1996 HPV Vaccines (1 - 3-dose SCDM series) 10/25/2010 Influenza Vaccines (#1) 2024 COVID-19 Vaccine ( season) 2024 IPV Vaccines Completed 11/23/1988, 0602/1985, 06/23/1984, Additional history exists MMR Vaccines Completed [...]
== END 2024-11-15 18:21 | disposition home or self-care (01) ==
LOC: HO.HGI 16:11
PROVIDERS: PCP Internal Medicine; Visit Provider Nurse Practitioner Family
DX: R13.14 Dysphagia, pharyngoesophageal phase (principal); K20.0 Eosinophilic esophagitis; K20.90 Esophagitis, unspecified without bleeding; K21.00 Gastro-esophageal reflux disease with esophagitis, without bleeding
CPT/HCPCS: 99214; G2211

== ENCOUNTER 2025-01-06 14:35 | Outpatient (AMB) | payer OTHER, SELFPAY ==
[2025-01-06 15:17] VITALS: BP 131/87; PULSE 67; O2SAT 98
--- NOTE | 2025-01-06 15:17 | MHC.OFFVIS ---
Vital Signs 01/06/25 15:17 01/06/25 15:40 BP 131/87 137/81 Blood Pressure Location Lt brachial Lt brachial Position Sitting Sitting Pulse 67 56 Pulse Source Pulse Oximeter Pulse Oximeter Pulse Oximetry (%) 98 98 Oxygen Delivery Method Room Air Room Air Intake Visit Reasons: Dupixent Teach Auto Carrier Driver Required: No Allergies famotidine Allergy (Mild, Verified 01/06/25 15:18) Swelling budesonide Allergy (Verified 01/06/25 15:18) Swelling HPI Comments Details: Eduardo is here for a Dupixent teach he was educated on hand washing, injection preparation, administration, and disposal.? He was able to return demonstrate proper technique for hand washing, injection preparation, administration and disposal of needle. He asked about frequency (weekly vs every 2 weeks). Both are in order, message sent to provider for clarification. Medication Dupixent 300mg/2mL auto-injector (patient?s own meds). Lot# [id number] expires 01/22/2027. [facility] [id number]. Patient self administered medication and stayed for 20 min after for monitoring. Vital signs stable pre and post injection. Patient had no further questions at this time. Nurse visit only. [facility] Medical History GERD (gastroesophageal reflux disease) Eosinophilic esophagitis Hiatal hernia Tinea versicolor Esophagitis Surgical History (Updated 11/15/24 @ 16:19 by JERROD Garcia) Hx of esophagogastroduodenoscopy History of dental surgery Family History Mother No problems noted. Father Heart attack Diabetes Brother Mental health disorder Substance use disorder Social History Housing: Apartment Are you a primary career discovery teacher to a significant other at home: No Do you presently have visiting nurse or other home services: No Alcohol intake: never Patient Tobacco Use Status: Never used Tobacco e-Cigarette/Vaping Use: Never Used Second Hand Smoke Exposure: No service: No Current occupational status: employed Cognitive needs: No Hearing needs: No Vision needs: Yes (Glasses) Physical Exam Vital Signs: Last Vital Signs Pulse 56 01/06/25 15:40 BP 137/81 01/06/25 15:40 Pulse Ox 98 01/06/25 15:40 Oxygen Delivery Method Room Air 01/06/25 15:40 Assessment & Plan Assessment & Plan (1) Eosinophilic esophagitis: Code(s): K20.0 - Eosinophilic esophagitis Category: Medical Plan Patient will return for 2nd dose in 1 week Coding Level of Care Code Established Pt Est Pt Level 1 (06657) Patient Type Established Diagnoses Eosinophilic esophagitis K20.0 Comment Nurse Visit Only
[2025-01-06 15:40] VITALS: BP 137/81; PULSE 56; O2SAT 98
--- OUTSIDE RECORDS SUMMARY | 2025-01-06 21:36 | XMS_ITS | Encounter Summary ---
Author Organization [facility] Address [address] [place] [address] Phone Care Team Providers Care Bill Poster Installer Name Role Phone Unavailable Primary Care Provider Unavailabl e Encounter Details Date Type Department Care Team (Late st Contact Info) Description 07/15/2011 Documentation EM Family Medicine [address] [place] [address] Family Medicine, Physician [address] [place] [address] Social History Tobacco Use Types [...]
--- OUTSIDE RECORDS SUMMARY | 2025-01-06 21:36 | XMS_ITS | Encounter Summary ---
Author Organization [facility] Address [address] [place] [address] Phone Care Team Providers Care Telephone Plant Power Operator Name Role Phone Unavailable Primary Care Provider Unavailabl e Encounter Details Date Type Department Care Team (Late st Contact Info) Description 07/15/2011 Documentation EM Family Medicine [address] [place] [address] Family Medicine, Physician [address] [place] [address] Social History Tobacco Use Types [...]
--- OUTSIDE RECORDS SUMMARY | 2025-01-06 21:37 | XMS_ITS | Encounter Summary ---
Author Organization [facility] Address [address] [place] [address] Phone Care Team Providers Care Towel Weaver Name Role Phone Unavailable Primary Care Provider Unavailabl e Encounter Details Date Type Department Care Team (Late st Contact Info) Description 07/15/2011 Documentation EM Family Medicine [address] [place] [address] Family Medicine, Physician [address] [place] [address] Social History Tobacco Use Types [...]
--- OUTSIDE RECORDS SUMMARY | 2025-01-06 21:37 | XMS_ITS | Clinical Summary ---
Author Organization [facility] Address [address] [place] [address] Phone Care Team Providers Care Enrollment Processor Name Role Phone Unavailable Primary Care Provider [...] Influenza Vaccines (#1) 2024 COVID-19 Vaccine ( - 2024- season) 2024 IPV Vaccines Completed 11/23/1988, 0602/1985, [...]
--- OUTSIDE RECORDS SUMMARY | 2025-01-06 21:37 | XMS_ITS | Encounter Summary ---
Author Organization [facility] Address [address] [place] [address] Phone Care Team Providers Care Trade Marker Name Role Phone Unavailable Primary Care Provider Unavailabl e Encounter Details Date Type Department Care Team (Late st Contact Info) Description 07/15/2011 Documentation EM Family Medicine [address] [place] [address] Family Medicine, Physician [address] [place] [address] Social History Tobacco Use Types [...]
--- OUTSIDE RECORDS SUMMARY | 2025-01-06 21:37 | XMS_ITS | Encounter Summary ---
Author Organization [facility] Address [address] [place] [address] Phone Care Team Providers Care Rn Employee Health Name Role Phone Unavailable Primary Care Provider Unavailabl e Encounter Details Date Type Department Care Team (Late st Contact Info) Description 07/15/2011 Documentation EM Family Medicine [address] [place] [address] Family Medicine, Physician [address] [place] [address] Social History Tobacco Use Types [...]
--- OUTSIDE RECORDS SUMMARY | 2025-01-06 21:37 | XMS_ITS | Encounter Summary ---
Author Organization [facility] Address [address] [place] [address] Phone Care Team Providers Care Floor Helper Name Role Phone Unavailable Primary Care Provider Unavailabl e Encounter Details Date Type Department Care Team (Late st Contact Info) Description 07/15/2011 Documentation EM Family Medicine [address] [place] [address] Family Medicine, Physician [address] [place] [address] Social History Tobacco Use Types [...]
--- OUTSIDE RECORDS SUMMARY | 2025-01-06 21:37 | XMS_ITS | Encounter Summary ---
Author Organization [facility] Address [address] [place] [address] Phone Care Team Providers Care Upstairs Maid Name Role Phone Unavailable Primary Care Provider Unavailabl e Encounter Details Date Type Department Care Team (Late st Contact Info) Description 07/15/2011 Documentation EM Family Medicine [address] [place] [address] Family Medicine, Physician [address] [place] [address] Social History Tobacco Use Types [...]
--- OUTSIDE RECORDS SUMMARY | 2025-01-06 21:37 | XMS_ITS | Encounter Summary ---
Author Organization [facility] Address [address] [place] [address] Phone Care Team Providers Care Rack Loader Name Role Phone Unavailable Primary Care Provider Unavailabl e Encounter Details Date Type Department Care Team (Late st Contact Info) Description 07/15/2011 Documentation EM Family Medicine [address] [place] [address] Family Medicine, Physician [address] [place] [address] Social History Tobacco Use Types [...]
== END 2025-01-06 15:39 | disposition home or self-care (01) ==
LOC: HO.HGI 14:36
PROVIDERS: PCP Internal Medicine; Visit Provider Nurse Practitioner Family
DX: K20.0 Eosinophilic esophagitis (principal)
CPT/HCPCS: 99499